=== PATIENT | female | born 1965 | race Caucasian/White ===

== ENCOUNTER → 2017-09-13 | Outpatient (CLI) | payer BC, SELFPAY | PROVIDERS: Visit Provider Family Medicine | DX: R92.8 Other abnormal and inconclusive findings on diagnostic imaging of breast (principal) | CPT/HCPCS: 76641 ==

== ENCOUNTER → 2018-01-18 14:11 | Outpatient (CLI) | payer BC, MEDICARE, SELFPAY ==
--- NOTE | 2018-01-18 14:16 | US_ITS ---
MM Dig mamm DX unilat RT CAD, US breast RT complete ORDERING PHYSICIAN : Kirsten Osorio PATIENT AGE: 52 years GENDER: Female August 2017, mammogram. Bilateral breast ultrasound February 2016 INDICATION: . Palpable area right breast. 4 weeks Fibrocystic breast TECHNIQUE: Standard CC and MLO images were obtained. R2 CAD reviewed. DIAGNOSTIC RIGHT MAMMOGRAM with Spot views Enlarging now 4 cm mass at the 9:00 retroareolar region right breast- reflecting enlarging cyst. Subsequent Ultrasound reported below confirm such.. There is a adjacent nearly 2 cm cyst just above this towards 11:00 evident on mammography. At both of these densities/cyst have enlarged since prior mammogram studies. From 2015 and 2016 Remaining fibroglandular elements elsewhere at the right breast appear stable ULTRASOUND RIGHT BREAST including axillary survey Entire breast was imaged and included axillary lymph node survey .. Large bilobed cystic complex at the lateral retroareolar region. Overall this bilobed cyst measures 5.5 cm length x 3 cm wide x 2.6 cm AP. The dominant portion of the cyst measuring 4 cm length(labeled A) with an adjacent satellite 1.6 cm cyst. (Labeled B). These match the mammogram mass density on today's mammogram This cystic area has enlarged since 2016 ultrasound at which time the cyst measured 3 cm length This appears to be a simple benign cyst and does not require aspiration based on imaging alone... But if so desired by patient or physician aspiration could be performed in the office or under ultrasound guidance if such is desired . There is also a smaller 1.75 cm cyst at 11:00 towards central breast . Benign cyst. Can be followed. This area is labeled C Axillary lymph nodes survey shows scattered benign lymph nodes largest imaged measuring 2.25 cm length cm.. Normal cortex IMPRESSION:======= 1. Enlarging benign-appearing cyst at the right breast account for the palpable area. Large bilobed cyst 9:00 retroareolar region- overall measuring up to 5.5 cm length. (This bilobed cyst Comprised of a 4 cm cyst and connected 1.6 cm cyst) 2. There is also a 1.75 cm benign cyst at 11:00 3. Neither these cyst require aspiration based on imaging, unless desired based on clinical grounds BI-RADS Category: 2 Benign Finding(s) RECOMMENDED FOLLOW-UP: 1YR - 1 YEAR FOLLOW-UP (A letter has been sent to the patient regarding results of the study.)
== END ==
PROVIDERS: Family Provider Family Medicine; PCP Family Medicine; Visit Provider Nurse Practitioner
DX: N63.10 Unspecified lump in the right breast, unspecified quadrant (principal)
CPT/HCPCS: 76641; 77065

== ENCOUNTER → 2018-03-11 10:49 | Outpatient (CLI) | payer BC, MEDICARE, SELFPAY ==
--- NOTE | 2018-03-11 10:51 | US_ITS ---
US breast LT complete INDICATION: Left breast pain and swelling and redness and tenderness to touch, palpable abnormality ORDERING PHYSICIAN: Michael Parkinson MD PATIENT AGE: 52 years COMPARISON: 09/13/2017 TECHNIQUE: Standard left breast ultrasound performed with axial FINDINGS: There is a bilocular cyst at the 12:00 region at 4.5 x 3.2 cm. The wall appears thickened when compared to the previous exam however, no internal debris is evident. Previously this cyst measured 3.8 x 1.8 cm.. This Corresponds to the palpable abnormality. 17 x 15 mm lobular cyst at 2:00 unchanged. The cyst is near the nipple. There are 2 cysts at 2:00 in the mid aspect of the breast measuring 18 and 11 mm. IMPRESSION: Multiple left breast cyst. The palpable area of concern at 12:00 is slightly larger with thickening of the cyst wall suggesting underlying inflammation/infection. Significant findings called to Dr. Mckee on 03/11/2018 1120 AM.
== END ==
PROVIDERS: Family Provider Family Medicine; PCP Family Medicine; Visit Provider Nurse Practitioner Obstetrics & Gynecology
DX: N64.4 Mastodynia (principal)
CPT/HCPCS: 76641

== ENCOUNTER → 2018-03-13 12:07 | Outpatient (REF) | payer BC, MEDICARE, SELFPAY | LOC: LAB 12:07 | PROVIDERS: Visit Provider Surgery | DX: N61.1 Abscess of the breast and nipple (principal) | CPT/HCPCS: 87070; 87075; 87205 ==

== ENCOUNTER → 2018-03-14 14:00 | Outpatient (CLI) | payer BC, MEDICARE, SELFPAY ==
--- NOTE | 2018-03-14 14:02 | US_ITS ---
US breast LT complete Ultrasound-guided cyst aspiration Ordering Physician: Leland Alvarez MD Patient Age: 52 years: Female HISTORY: ITS.REASON: abcess left breast cystvery tender from area associated TECHNIQUE: Aspiration left infected left breast cyst/abscess performed by Dr. Bright COMPARISON :Recent ultrasound 03/11/2018 PROCEDURE AND FINDINGS The initial ultrasound performed and shows a very debris filled echogenic cyst at 11-12:00. This measuring up to 3.2 x 1.8 cm. Disc posterior this is a smaller 1.3 x 1 cm echogenic cyst. Both of these were seen on previous ultrasound 03/11/2018 and both have decreased in size notably in the interval. The larger of these cysts. Understand that these were aspirated by Dr. Alvarez yesterday in the office with aspiration directed by palpation. We proceeded with aspiration of this larger cyst at 11-12:00 O'clock. Using an 18-gauge needle was able to to withdraw additional 6-7 cc bloody fluid from this area and we can see it decreased slightly in size during the procedure.. It measured 2.6 cm cm length at the end of the study. This obtain bloody fluid was sent for cytology, Gram stain, culture and sensitivity.. Also attempted to aspirate the smaller cyst just posterior to this with only a small amount of fluid from this area which was included in the above specimen The patient also had clear cyst at the 2 o'clock position. These were documented previously and appear the same. The remaining clear. I discussed these with Dr. Alvarez and did not want to introduce any infection into these otherwise clear appearing cyst. A focus old be on the very echogenic apparent infected cyst at 11-12 o'clock position The patient was anxious and extremely tender anxious this area because of this we did offer and give her Phenergan by mouth and Lortab 5 prior to the procedure. At this seemed to help and she tolerated the procedure quite well with less discomfort than expected from her initial exam . The patient does have some notable ductal prominence in the retroareolar region . Also diffuse edema tissues surrounding the infected cyst/abscess at 11-12 o'clock position noted IMPRESSION 1. The very echogenic debris-filled infected cyst/abscess at the 11-12 o'clock position were identified and aspirated with an 18-gauge spinal needle 6-7 cc of bloody fluid were obtained from this region and the area did decrease in size slightly after this. Both the large cyst and the smaller cyst just behind were additionally aspirated Patient tolerated procedure surprising well given her initial exam and pain in this region 2. The other clear clear thin-walled cyst at 2:00 were not aspirated. I scanned these areas in the did not seem to have the inflammation in the more adjacent to them and did not want intravenous infection. These will be followed as discussed with Dr. Alvarez IMPRESSION:
== END ==
PROVIDERS: Family Provider Family Medicine; PCP Family Medicine; Visit Provider Surgery
DX: N63.20 Unspecified lump in the left breast, unspecified quadrant (principal)
CPT/HCPCS: 10022; 76641; 87070; 87075; 87205

== ENCOUNTER → 2018-04-08 13:58 | Outpatient (CLI) | payer BC, MEDICARE, SELFPAY ==
--- NOTE | 2018-04-08 14:05 | US_ITS ---
US breast LT complete Ordering Physician: Mango Roach MD Patient Age: 52 years: Female HISTORY: ITS.REASON: breast abscessat 11-12:00. Recent increase tender tense area at now at 2-3:00 TECHNIQUE: Ultrasound survey entire breast including axillary survey COMPARISON :Previous ultrasound left breast March 14, 2018 and 03/11/2018 left breast FINDINGS . We encounter a pair of cyst at 2:00-3 o'clock position left breast. The largest cyst measuring 2 cm X 1.8 cm.-This is similar to the initial 03/11/2018 examll The medial to this is a 1.5 x 1.3 cm cystic area..-This also appears similar size to the initial 03/11/2018 exam There is no significant wall thickening or inflammatory changes evident on ultrasound associated with either of these previously evident cyst. There appear to be fairly simple benign cysts currently on ultrasound. The patient states her symptoms have improved.. She declined pursuing cyst aspiration today. Understand she is still on antibiotics and will follow-up with Dr. Roach on Sunday when she returns after her vacation if symptoms progress Moving to the superior medial quadrant left breast: The site of previous infected cyst/abscess at 11-12:00 has significantly regressed.. Notably Smaller residual septated cystic area now measures overall up to 2 cm wide. Most notable within this is a 1.5 cm hypoechoic debris-filled cystic area with septations & mild diffuse wall thickness about this area- reflecting the resolving abscess. The just medial to this is a less than 5 mm cystic area.. The small secondary cystic area posterior to the main collection is longer evident posteriorly. IMPRESSION: 1. The pair of cysts at 2:00-3 o'clock position left breast appear similar to the initial 03/11/2018 ultrasound breast exam. They remain clear cyst with no significant wall thickening nor significant turbinate inflammation type changes appreciable on ultrasound. No increased vascularity either 2. The patient states her symptoms have improved here over the past several days and declined breast aspiration of these cysts at this visit. 3. There is been significant improvement & regression at the previous infected cyst/abscess at 11-12:00.. We do see continue to see residual septated cystic area here which overall spans up to 2 cm. However marked regression and improvement both ultrasound and clinically. This can be followed 4. Follow-up of these areas as required by symptoms. BI-RADS Category: 2 Benign Finding(s) RECOMMENDED FOLLOW-UP: 1YR - 1 YEAR FOLLOW-UP (A letter has been sent to the patient regarding results of the study.)
== END ==
PROVIDERS: Family Provider Family Medicine; PCP Family Medicine; Visit Provider Surgery
DX: N61.1 Abscess of the breast and nipple (principal)
CPT/HCPCS: 76641

== ENCOUNTER → 2019-03-13 09:57 | Outpatient (CLI) | payer MEDICARE, BC, SELFPAY ==
--- NOTE | 2019-03-13 10:04 | MM_ITS ---
MM Dig screening mamm BI w/CAD CAD Screening COMPARISON: Digital mammograms with CAD 08/29/2017 and digital right mammogram with CAD 01/18/2018 INDICATION: There is a history of breast cancer in patient's mother diagnosed at age 46. There is been previous cyst aspiration left breast with benign findings. TECHNIQUE: Standard CC and MLO images were obtained. R2 CAD reviewed. FINDINGS: Moderate diffuse fibroglandular densities are seen in central portions of both breast. The 2 dominant cystic appearing masses right breast seen on the previous mammogram 01/18/2018 have shown marked interval decrease in size and presumably are cysts which have spontaneously decompressed somewhat. There are few benign-appearing microcalcifications in each breast. There are no suspicious microcalcifications. IMPRESSION: Moderate diffuse breast density with interval decrease in size of apparent cystic lesions right breast BI-RADS Category: 2 Benign Finding(s) RECOMMENDED FOLLOW-UP: 1YR - 1 YEAR FOLLOW-UP (A letter has been sent to the patient regarding results of the study.)
== END ==
PROVIDERS: PCP Family Medicine; Visit Provider Family Medicine
DX: Z12.31 Encounter for screening mammogram for malignant neoplasm of breast (principal)
CPT/HCPCS: 77067

== ENCOUNTER → 2019-05-23 17:15 | Outpatient (CLI) | payer BC, SELFPAY ==
--- NOTE | 2019-05-23 17:44 | XR_ITS ---
PROCEDURE: XR LUMBAR SPINE MIN 4V CLINICAL INDICATION: LOWER BACK PAIN COMPARISON: No exams were available for comparison FINDINGS: There is normal alignment. No fracture or dislocation. There are 6 lumbar segments with mild degenerative disc disease in the lower lumbar spine and lumbosacral junction. Mild facet hypertrophic changes are present at the lumbosacral junction. IMPRESSION: Mild degenerative changes, no acute finding Dictated by: Demarcus Oneal MD 05/24/2019 06:40 Signed by: <Electronically signed by Demarcus Oneal MD in [place]> 05/24/2019 06:40
--- NOTE | 2019-05-23 17:45 | XR_ITS ---
PROCEDURE: XR HIP RT 2-3V W/PELVIS CLINICAL INDICATION: TROCHANTERIC BURSITIS Right hip pain COMPARISON: HIP2L HIP-2 VIEWS-LT from 12/19/2013 ABDPELW/O CT ABD PELVIS W/O CONTRAST from 01/06/2016 FINDINGS: No fracture or dislocation is evident. No significant degenerative change. No lytic or blastic change. Unremarkable soft tissues. IMPRESSION: No acute findings. Dictated by: Demarcus Oneal MD 05/24/2019 06:37 Signed by: <Electronically signed by Demarcus Oneal MD in [place]> 05/24/2019 06:37
== END ==
PROVIDERS: PCP Family Medicine; Visit Provider Family Medicine
DX: M46.1 Sacroiliitis, not elsewhere classified (principal); M54.16 Radiculopathy, lumbar region; M70.61 Trochanteric bursitis, right hip
CPT/HCPCS: 72110; 73502

== ENCOUNTER → 2019-06-10 10:55 | Outpatient (POV) | payer MEDICARE, BC, SELFPAY ==
[2019-06-10 11:17] VITALS: BP 132/92; PULSE 99; RESP 18; O2SAT 99; BMI 30.2
--- NOTE | 2019-06-10 12:04 | HMH.PMCON ---
Assessment and Plan (1) Facet arthropathy Current visit: Yes Status: Chronic Category: Medical Code(s): M47.819 - Spondylosis without myelopathy or radiculopathy, site unspecified (2) Pain Current visit: Yes Status: Chronic Category: Medical Code(s): R52 - Pain, unspecified - Assessment and plan all Dx Assessment and Plan for all problems:: We will schedule lumbar MRI for the patient to help discern pathology. Patient is tried injections in the past and did not have much relief with it. She has had pain for over a year and has failed conservative measures including physical therapy and medications. I will follow-up with her after her MRI and reassess her symptoms at that time she is instructed to call the office if she has any issues prior to her next appointment. Dr. Sepulveda has reviewed this note and agrees with this plan of care. This note was dictated using voice recognition software and may contain errors or omissions HPI - Data of Consult Consult date: 06/10/19 Requesting Physician: Fannie Billy APRN Primary Care Provider: Neil Ramey MD - Consult Narrative Reason for consult: Lower back pain History of present illness: Ms. Garcia is a 53 year old female who presents today for consultation in regards to her low back pain. Patient has had pain for the last 20 years. She rates her pain a 5 out of 10. She does SI joint injections back in 1998 however they do not get any better. Patient states her pain is constant. She is tried multiple medications including Elavil, Soma, Celebrex, Cymbalta, gabapentin, Motrin, naproxen, tramadol, Paxil. Patient has completed physical therapy with no true relief. Patient does have an x-ray showing facet hypertrophy in the lumbosacral junction. Patient does not have any MRI. Pain is worse on twisting patient is extremely tender over SI joints and facet joints lumbar spine CC: Fannie Billy APRN [facility] History I have reviewed the patient's past medical history: Yes Medical History: Reports:: Gastroesophageal Reflux Disease(GERD), Hypertension, Palpitations *Have you ever received a pneumonia vaccine?: Yes *Have you received a flu vaccine this season?: Yes Other Medical History: Reports: Thyroid Disease Laterality Cases: Left: Breast Biopsy Other Surgeries: Yes: No Previous Surgery, Thyroidectomy - *Social History Smoking Status: Never smoker Tobacco Type: cigarettes Alcohol Intake: never Alcohol Intake Frequency:: a few times a month Substance Use Type: denies use *Occupational Status:: employed, other Housing: house Household Members: family *Travel in the last 8 weeks: None Family Hx:: Cancer Review of Systems - Review of Systems ROS General: no recent weight change, no fever, no sleep disturbances Respiratory: no cough, no shortness of air, no recurring pulmonary infections Cardiovascular/Peripheral Vascular: No chest pain, No palpitations, no edema, no shortness of breath. Gastrointestinal: no incontinence, normal bowel movements reported Genitourinary: no incontinence Musculoskeletal: Back pain Psychiatric: normal mood/ affect Neurological: [denies weakness in extremities], [denies balance issues] Meds Home Medications Medication Instructions Recorded Confirmed Type esomeprazole magnesium 40 mg 40 mg PO ONCE 03/12/18 05/03/19 History capsule,delayed release nebivolol 2.5 mg tablet 2.5 mg PO ONCE 03/12/18 05/03/19 History levothyroxine 75 mcg tablet PO 90 Days #90 04/20/18 05/03/19 History amoxicillin 500 mg capsule 500 mg PO BID 10 Days #20 cap 05/03/19 05/03/19 Rx benzonatate 100 mg capsule 100 mg PO TID PRN #30 cap 05/03/19 05/03/19 Rx paroxetine 20 mg tablet PO #90 tab 05/03/19 05/03/19 History Allergies Allergy/AdvReac Type Severity Reaction Status Date / Time acetaminophen Allergy Unknown Verified 05/03/19 10:51 codeine Allergy Unknown Verified 05/03/19 10:51 hydrocodone Allergy Unknown Verified
--- NOTE | 2019-06-10 12:08 | P.CONS_ITS ---
Assessment and Plan (1) Facet arthropathy Current visit: Yes Status: Chronic Category: Medical Code(s): M47.819 - Spondylosis without myelopathy or radiculopathy, site unspecified (2) Pain Current visit: Yes Status: Chronic Category: Medical Code(s): R52 - Pain, unspecified - Assessment and plan all Dx Assessment and Plan for all problems:: We will schedule lumbar MRI for the patient to help discern pathology. Patient is tried injections in the past and did not have much relief with it. She has had pain for over a year and has failed conservative measures including physical therapy and medications. I will follow-up with her after her MRI and reassess her symptoms at that time she is instructed to call the office if she has any issues prior to her next appointment. Dr. Sepulveda has reviewed this note and agrees with this plan of care. This note was dictated using voice recognition software and may contain errors or omissions HPI - Data of Consult Consult date: 06/10/19 Requesting Physician: Fannie Billy APRN Primary Care Provider: Neil Ramey MD - Consult Narrative Reason for consult: Lower back pain History of present illness: Ms. Garcia is a 53 year old female who presents today for consultation in regards to her low back pain. Patient has had pain for the last 20 years. She rates her pain a 5 out of 10. She does SI joint injections back in 1998 however they do not get any better. Patient states her pain is constant. She is tried multiple medications including Elavil, Soma, Celebrex, Cymbalta, gabapentin, Motrin, naproxen, tramadol, Paxil. Patient has completed physical therapy with no true relief. Patient does have an x-ray showing facet hypertrophy in the l umbosacral junction. Patient does not have any MRI. Pain is worse on twisting patient is extremely tender over SI joints and facet joints lumbar spine CC: Fannie Billy APRN [facility] History I have reviewed the patient's past medical history: Yes Medical History: Reports:: Gastroesophageal Reflux Disease(GERD), Hypertension, Palpitations *Have you ever received a pneumonia vaccine?: Yes *Have you received a flu vaccine this season?: Yes Other Medical History: Reports: Thyroid Disease Laterality Cases: Left: Breast Biopsy Other Surgeries: Yes: No Previous Surgery, Thyroidectomy - *Social History Smoking Status: Never smoker Tobacco Type: cigarettes Alcohol Intake: never Alcohol Intake Frequency:: a few times a month Substance Use Type: denies use *Occupational Status:: employed, other Housing: house Household Members: family *Travel in the last 8 weeks: None Family Hx:: Cancer Review of Systems - Review of Systems ROS General: no recent weight change, no fever, no sleep disturbances Respiratory: no cough, no shortness of air, no recurring pulmonary infections Cardiovascular/Peripheral Vascular: No chest pain, No palpitations, no edema, no shortness of breath. Gastrointestinal: no incontinence, normal bowel movements reported Genitourinary: no incontinence Musculoskeletal: Back pain Psychiatric: normal mood/ affect Neurological: [denies weakness in extremities], [denies balance issues] Meds Home Medications Medication Instructions Recorded Confirmed Type esomeprazole magnesium 40 mg 40 mg PO ONCE 18 05/03/19 History capsule,delayed release nebivolol 2.5 mg tablet 2.5 mg PO ONCE 03/12/18 05/03/19 History levothyroxine 75 mcg tablet PO 90 Days #
== END ==
PROVIDERS: PCP Family Medicine; Visit Provider Clinical Nurse Specialist Family Health
DX: M47.819 Spondylosis without myelopathy or radiculopathy, site unspecified (principal); R52 Pain, unspecified
CPT/HCPCS: 99202

== ENCOUNTER → 2019-06-17 08:03 | Outpatient (CLI) | payer MEDICARE, BC, SELFPAY ==
--- NOTE | 2019-06-17 08:05 | MR_ITS ---
PROCEDURE: MR LUMBAR SPINE WO CON CLINICAL INDICATION: BACK PAIN Low back pain radiating into the right lower extremity, right-sided radiculopathy COMPARISON: XR LUMBAR SPINE MIN 4V from 05/23/2019 TECHNIQUE: Standard multiplanar multiecho sequences are performed without contrast. 3-D MIP and myelographic images are also rendered and reviewed FINDINGS: The spinal cord ends at the L1 level. There is normal alignment. Minimal degenerative changes T11-T12 L3-L4: Minimal bulging disc with mild disc desiccation. L4-5: Unremarkable. L5-S1: Unremarkable. No disc herniation or canal stenosis or foraminal narrowing. IMPRESSION: Only minimal degenerative changes with no canal stenosis, foraminal narrowing or extruded herniated disc. Dictated by: Demarcus Oneal MD 06/17/2019 09:51 Electronically signed by Demarcus Oneal MD in [place] 06/17/2019 09:51
== END ==
PROVIDERS: PCP Family Medicine; Visit Provider Clinical Nurse Specialist Family Health
DX: M54.5 Low back pain (principal)
CPT/HCPCS: 72148; 76376

== ENCOUNTER → 2019-07-08 11:10 | Outpatient (POV) | payer MEDICARE, BC, SELFPAY ==
[2019-07-08 11:16] VITALS: BP 159/70; PULSE 95; RESP 18; O2SAT 96; BMI 29.9
--- NOTE | 2019-07-08 11:54 | XR_ITS ---
PROCEDURE: XR HIP RT 2-3V W/PELVIS Left hip two-views views CLINICAL INDICATION: HIP PAIN,SACROILIAC PAIN COMPARISON: HIP2L HIP-2 VIEWS-LT from 12/19/2013 ABDPELW/O CT ABD PELVIS W/O CONTRAST from 01/06/2016 XR LUMBAR SPINE MIN 4V from 05/23/2019 XR HIP RT 2-3V W/PELVIS from 05/23/2019 XR HIP LT 2-3V W/PELVIS from 07/08/2019 FINDINGS: Right hip: No fracture or dislocation is evident. There is a lucency overlying the femoral head superiorly and may actually be within the acetabulum possibly related to an os acetabulum. No other significant anomalies are evident of the right hip. Left hip: Unremarkable. IMPRESSION: Lucency projecting over the femoral head on the right possibly due to a lucency of the acetabulum. Consider CT for confirmation. Otherwise negative. Negative left hip Dictated by: Demarcus Oneal MD 07/08/2019 18:24 Electronically signed by Demarcus Oneal MD in [place] 07/08/2019 18:25
--- NOTE | 2019-07-08 11:54 | XR_ITS ---
PROCEDURE: XR SACROILIAC JOINT BI MIN 3V CLINICAL INDICATION: HIP PAIN,SACROILIAC PAIN COMPARISON: No exams were available for comparison FINDINGS: No fracture, dislocation, lytic change, blastic change, sclerosis, or significant degenerative change IMPRESSION: Negative SI joints Dictated by: Demarcus Oneal MD 07/08/2019 18:27 Electronically signed by Demarcus Oneal MD in [place] 07/08/2019 18:27
--- NOTE | 2019-07-08 15:21 | HMH.PAINSOAP ---
[facility] Pain Management SOAP Note Subjective:: Patient is a pleasant 53-year-old white female presents today for follow-up after MRI. Her MRI was pretty much unremarkable. However again most of her pain is SI joint related. Patient does have a positive Nayla's test Bandar test and SI joint compression test. Patient and I talked about utilizing an SI joint injection as a nerve block to determine if she is potentially a corner lock candidate I do believe this would be beneficial. She is also going to be getting a SI joint belt to help stabilize. She is continuing her home stretching program. Patient has completed physical therapy in the past with no success. She is had this pain for over 15 years. She is failed over 6 months of conservative treatments. ROS General: no recent weight change, no fever, no sleep disturbances Respiratory: no cough, no shortness of air, no recurring pulmonary infections Cardiovascular/Peripheral Vascular: No chest pain, No palpitations, no edema, no shortness of breath. Gastrointestinal: no new onset incontinence, normal bowel movements reported Genitourinary: no new onset incontinence Musculoskeletal: SI joint pain bilaterally Psychiatric: normal mood/ affect Neurological: [denies new onset weakness in extremities], [denies new onset balance issues] Objective:: Physical Exam General: Alert and oriented x3, no acute distress, pleasant and cooperative, [on room air] Lungs: Resps E/U, Symmetrical chest expansion, Eyes: PERRL Musculoskeletal: Flexion and extension of lumbar spine somewhat guarded secondary to pain, deep tendon reflexes normal, strength in upper and lower extremities [5/5], antalgic gait noted Neurological: speech clear, business 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 Patient also can get a SI joint belt for stabilization. Patient and I also discussed the corner lock procedure. I will follow-up with the patient after her injections reassess her symptoms at that time she is been instructed to call the office if she has any issues prior to her next appointment. Dr. Sepulveda has reviewed this note and agrees with this plan of care. This note was dictated using voice recognition software and may contain errors or omissions [facility] History I have reviewed the patient's past medical history: Yes Medical History: Reports:: Gastroesophageal Reflux Disease(GERD), Hypertension, Palpitations *Have you ever received a pneumonia vaccine?: No *Have you received a flu vaccine this season?: No Other Medical History: Reports: Thyroid Disease Laterality Cases: Left: Breast Biopsy Other Surgeries: Yes: No Previous Surgery, Thyroidectomy - *Social History Smoking Status: Never smoker Tobacco Type: cigarettes Alcohol Intake: never Alcohol Intake Frequency:: a few times a month Substance Use Type: denies use *Occupational Status:: employed Housing: house Household Members: family *Travel in the last 8 weeks: None Family Hx:: Cancer
--- NOTE | 2019-07-09 11:39 | PC.PHONENOTE ---
called in Rx for Diclofenac 75mg BID with 1 refill per md order.
== END ==
PROVIDERS: PCP Family Medicine; Visit Provider Clinical Nurse Specialist Family Health
DX: M46.1 Sacroiliitis, not elsewhere classified (principal)
CPT/HCPCS: 72202; 73502; 99212

== ENCOUNTER → 2020-04-06 10:00 | Outpatient (CLI) | payer MEDICARE, BC, SELFPAY ==
--- NOTE | 2020-04-06 10:05 | MM_ITS ---
PROCEDURE: MM DIG SCREENING MAMM BI W/CAD Digital Breast Tomosynthesis Included CLINICAL INDICATION: SCREENING There is no personal or family history of breast cancer. There has been a previous cyst aspiration right breast with benign findings. COMPARISON: [facility] DIG MAMM-SCREEN LEON W/CAD from 08/29/2017 DXRT MM Dig mamm DX unilat RT CAD from 01/18/2018 DIG MAMM-SCREEN LEON from 03/13/2019 TECHNIQUE: Standard CC and MLO images and 3D Tomosynthesis was obtained. R2 CAD reviewed. FINDINGS: Prominent diffuse fibroglandular densities are seen throughout both breasts. There are 2 rounded densities right breast 1 just deep to the nipple other 10 to 11 o'clock position mid breast. The 11 o'clock nodular density is stable and unchanged in appearance from previous studies dating back to August 2017. The other density just deep to the nipple likely is the site of the previously aspirated cyst and probably showing some recurrence. Recommend the patient return for ultrasound of the right breast to ensure the cystic nature of these lesions. There is a benign-appearing calcification left breast. There is no other suspicious lesion and no suspicious microcalcifications. IMPRESSION: Moderate diffuse breast density with rounded nodular lesions right breast BI-RAD Category: 0 Need Additional Imaging Evaluation FOLLOW-UP: IMM Immediate Follow-up Recommended (A letter has been sent to the patient regarding results of the study.) Dictated by: Dr. Monico Marroquin MD 04/08/2020 14:[address] Monico Marroquin MD in [place] 04/08/2020 14:38
== END ==
PROVIDERS: PCP Family Medicine; Visit Provider Family Medicine
DX: Z12.31 Encounter for screening mammogram for malignant neoplasm of breast (principal)
CPT/HCPCS: 77063; 77067

== ENCOUNTER → 2020-04-19 09:49 | Outpatient (CLI) | payer MEDICARE, BC, SELFPAY ==
--- NOTE | 2020-04-19 09:52 | US_ITS ---
PROCEDURE: US BREAST RT COMPLETE CLINICAL INDICATION: ABN MAMM Abnormal mammogram COMPARISON: US BREASTRT US breast RT complete from 01/18/2018 US BREASTLT US breast LT complete from 04/08/2018 MG MM DIG SCREENING MAMM BI W/CAD from 04/06/2020 FINDINGS: At 7 o'clock there is a complicated cystic lesion measuring 9 x 7 mm with an internal septation. There is an additional hypoechoic nodule at 7 o'clock measuring 18 x 11 mm. This does contain some low level echoes with some enhanced through transmission is sound and is wider than tall and could represent a complex cyst with debris or a solid nodule. And 11 mm cyst is present at 10 o'clock with some internal debris. IMPRESSION: Complicated cyst along with a indeterminate hypoechoic possible solid nodule at 7 o'clock. BI-RADS category 4 mildly suspicious 11 mm hypoechoic nodule at 7 o'clock Recommend ultrasound-guided FNA/core biopsy Dictated b Demarcus Oneal MD 04/29/2020 17:57 Demarcus Oneal MD in [place] 04/29/2020 17:57
== END ==
PROVIDERS: PCP Family Medicine; Visit Provider Family Medicine
DX: R92.8 Other abnormal and inconclusive findings on diagnostic imaging of breast (principal)
CPT/HCPCS: 76641

== ENCOUNTER → 2020-05-26 12:30 | Outpatient (CLI) | payer MEDICARE, BC, SELFPAY ==
--- NOTE | 2020-05-26 12:40 | US_ITS ---
PROCEDURE: US FNA BREAST CLINICAL INDICATION: RT BREAST CYST Two nodules of the right breast at 7 o'clock and at 10 o'clock. COMPARISON: MG MM DIG SCREENING MAMM BI W/CAD from 04/06/2020 US US BREAST RT COMPLETE from 04/19/2020 TECHNIQUE: Following obtaining informed consent and pre biopsy ultrasound performed FNA which was performed the nodule which was previously labeled at 7 o'clock but is actually at 9 o'clock. These are labeled as 9 o'clock and the biopsy was labeled as 9 o'clock including FNA and core biopsy which also performed at this area. Pathology report is labeled as breast biopsy needle cores right 11 o'clock. This is actually the 9 o'clock biopsy as a core biopsy was not performed at 11 o'clock. Proliferative fibrocystic changes. Microcalcifications are identified. FNA 1. 9 o'clock atypical. Rare atypical ductal groups with histiocytes suggestive of a cystic component favoring reactive hyperplasia. FNA 2 also performed at 9 o'clock negative for malignant cells FNA was also performed at 11 o'clock with a complicated cyst which was nearly completely aspirated and was negative for malignant cells. FINDINGS: Pathology report is labeled as breast biopsy needle cores right 11 o'clock. This is actually the 9 o'clock biopsy as a core biopsy was not performed at 11 o'clock. Proliferative fibrocystic changes. Microcalcifications are identified. FNA 1. 9 o'clock atypical. Rare atypical ductal groups with histiocytes suggestive of a cystic component favoring reactive hyperplasia. FNA 2 also performed at 9 o'clock negative for malignant cells FNA was also performed at 11 o'clock with a complicated cyst which was nearly completely aspirated and was negative for malignant cells. IMPRESSION: Status post FNA and core biopsy at 9 o'clock. The FNA did show some atypical cells on 1 sample but not on the 2nd sample. The core biopsy was proliferative fibrocystic change without atypia or malignancy. FNA at 11 o'clock was negative for malignancy. Recommend six-month sonographic follow-up per routine protocol Dictated by: Demarcus Oneal MD 06/16/2020 13:32 Demarcus Oneal MD in [place] 06/16/2020 13:32
== END ==
PROVIDERS: PCP Family Medicine; Visit Provider Family Medicine
DX: N60.01 Solitary cyst of right breast (principal)
CPT/HCPCS: 19083; 76942; 87070; 87205; 88173; 88305

== ENCOUNTER → 2020-07-06 16:56 | Outpatient (CLI) | payer MEDICARE, BC, SELFPAY ==
[2020-07-06 17:10] LABS: Basophils % 0.5 % (0.1-2.0); Eosinophils # 0.2 K/mm3 (0.0-0.4); Eosinophils % 4.9 % (0.1-12.0); Hematocrit 42.6 % (37.0-47.0); Hemoglobin 13.3 g/dL (12.2-16.2); Lymphocytes # 1.7 K/mm3 (0.7-4.5); Lymphocytes % 38.4 % (10-50); Mean Corpuscular HGB Conc 31.3 g/dL (31.8-35.4); Mean Corpuscular Hemoglobin 30.6 pg (27.0-31.2); Mean Corpuscular Volume 97.6 fl (81-99); Mean Platelet Volume 7.6 fl (7.4-10.4); Monocytes # 0.3 K/mm3 (0.1-1.0); Monocytes % 7.4 % (1.7-9.3); Neutrophils # 2.2 K/mm3 (1.8-7.8); Neutrophils % 48.7 % (37.0-80.0); Platelet Count 266 K/mm3 (142-424); Red Blood Count 4.36 M/mm3 (4.20-5.40); Red Cell Distribution Width 11.8 % (11.5-17.5); White Blood Count 4.4 K/mm3 (4.8-10.8)
[2020-07-06 18:26] LABS: Chloride 103 mmol/L (98-107); Potassium 3.9 mmoL/L (3.5-5.1); Sodium 137 mmol/L (136-145)
[2020-07-06 18:29] LABS: Anion Gap 8.9 mEq/L (5-15); Blood Urea Nitrogen 12 mg/dl (7-17); Carbon Dioxide 29 mmol/L (22.0-30.0); Estimated Glomerular Filt Rate 103 ml/min (>60); GFR (African American) 125 ML/MIN (>60); Glucose 98 mg/dl (74-100)
[2020-07-06 20:55] LABS: Coronavirus 19 IgG Antibody Negative (Negative); Coronavirus 19 IgM Antibody Negative (Negative)
== END ==
PROVIDERS: Visit Provider Surgery
DX: M47.819 Spondylosis without myelopathy or radiculopathy, site unspecified (principal); R89.7 Abnormal histological findings in specimens from other organs, systems and tissues; Z01.89 Encounter for other specified special examinations
CPT/HCPCS: 36415; 80048; 85025; 86328

== ENCOUNTER 2020-07-09 07:34 | Day surgery (SDC) | payer MEDICARE, BC, SELFPAY ==
[2020-07-09] VITALS (12 sets, daily range): BP systolic 125–152; BP diastolic 68–97; PULSE 64–85; RESP 12–18; TEMP 36.2–36.5; O2SAT 96–100; BMI 27.1
--- NOTE | 2020-07-09 08:34 | US_ITS ---
PROCEDURE: US BREAST NEEDLE LOC RT CLINICAL INDICATION: abnormal breast biopsy COMPARISON: MG MM DIG SCREENING MAMM BI W/CAD from 04/06/2020 US US FNA BREAST from 05/26/2020 MG MM SURGICAL SPECIMEN RT from 07/09/2020 MG MM DIG MAMM DX UNILAT RT CAD from 07/09/2020 FINDINGS: Following obtaining informed consent are under aseptic conditions and local anesthesia with buffered 1 percent lidocaine and time-out procedure, a 7 cm Kopan's wire was placed along the lower aspect of the nodule and an additional 7 cm wire was placed along the superior aspect of the nodule. The patient tolerated the procedure well and left radiology suite in stable condition without evidence of immediate complication. Right mammogram post hookwire placement 2 wires are present in the lateral aspect of the right breast near 9 o'clock. The wires are in position. No definite mammographic abnormality was determined to be present at this region. Impression: Status post hookwire localization with ultrasound Tissue specimen: Small surgical specimen submitted in consent it originally shows the [address] No obvious nodular area evident in this region. More tissue was then obtained showing some fibroglandular elements present. No discrete mass was apparent. IMPRESSION: Uneventful ultrasound-guided hookwire localization. Dictated by: Demarcus Oneal MD 07/13/2020 15:26 Demarcus Oneal MD in [place] 07/13/2020 15:26
--- NOTE | 2020-07-09 12:37 | HMH.OPNOTE ---
Date of procedure: 07/09/20 Pre-op Diagnosis:: Abnormal right breast biopsy Post-op Diagnosis:: Same Procedure performed:: Needle-localized excisional biopsy of right breast lesion Surgeon:: Leland Alvarez MD ASSET AVAILABILITY LEADER:: Keshav Mcwilliams Anesthesia: LMA Estimated blood loss (mL): 25 Operative findings:: Localization needles running lateral to medial and remained in the very shallow subcutaneous tissue Initial excision did not obtain complete excision of tissue Reexcision of deeper tissue with radiographic confirmation of appropriate excision Operative note:: After informed consent was obtained the patient was taken to the radiology suite where a localization needles were placed. Please see separate radiology report for detail. She was then taken to the operating room and placed in the supine position. General anesthesia with laryngeal mask airway was achieved. Her right breast was prepped and draped in a sterile fashion. After infiltration local anesthetic a curvilinear incision at the exit site of the adjacent localization needles was completed with scalpel. The deep subcutaneous tissue was dissected with a combination of scalpel and Metzenbaum scissors. The localization needles were carefully elevated as dissection continued. The placement of the needles was very shallow . The needles with underlying tissue were excised sharply with curved Fay scissors and passed off for pathologic evaluation after being marked for margin. The superficial and deep margins were marked with non-dyed suture (short superficial/long deep) and the superior and lateral margins were marked with dyed suture (long lateral/short superior). The tissue was taken to the radiology department where confirmation of appropriate excision could not be made. The decision was made to take deeper tissue . The deeper and somewhat medial tissue was carefully elevated with Allis clamps. Curved Mayos were then utilized to excise around this tissue and it was passed off for radiographic and pathologic evaluation. Once again, the margins were marked as above. Radiographic evaluation did confirm appropriate excision. Electrocautery was utilized to achieve hemostasis. Hemostasis was very difficult to achieve and also required interrupted non-dyed Vicryl to be placed in the superior lateral margin, medial inferior margin, and medial margin. A small area of ductal drainage was also noted in the subareolar/medial region. This area was carefully evacuated of fluid and suture ligation was completed. No additional areas of injury or bleeding were noted. The wound base and margin were marked with metallic clips. The deep subcutaneous tissue was reapproximated with interrupted Vicryl and skin was then closed with 4-0 Monocryl in a running subcuticular manner. Steri-Strips were applied. Patient was transferred to recovery in stable condition after removal of her laryngeal mask airway. Condition: stable Disposition: PACU Specimens:: Needle localized excisional right breast biopsy Extended deep margin Complications:: No immediate
--- NOTE | 2020-07-09 12:47 | P.PN_ITS ---
[facility] Anesthesia Record Part I Intake, IV Amount: 2,500 Estimated blood loss (mL): 200 Urine output (mL): 0 Blood Pressure: 138/68 SaO2: 96 Pulse Rate: 85 Respiratory Rate: 12 Temperature: 97.5 F Patient is:: Awake, Stable Stable to PACU at:: 12:45
--- NOTE | 2020-07-09 16:28 | P.PN_ITS ---
[facility] Anesthesia Record Part II Discharge Time: 13:30 Destination: Surgical Day Care (OP Surgery) PACU nurse assessment reviewed?: Yes Patient Condition:: Good Anesthesia Complications:: None Swallowing reflex intact?: Yes Cyanosis?: No Blood Pressure: 128/75 Pulse Rate: 64 Temperature: 97.2 F Mental Status: Alert & Oriented Pain level:: 2 Nausea and/or vomitting:: None Intake, IV Amount: 0
== END 2020-07-09 14:05 | disposition home or self-care (01) ==
LOC: OR 07:35
PROVIDERS: PCP Family Medicine; Visit Provider Surgery
DX: R89.7 Abnormal histological findings in specimens from other organs, systems and tissues (principal); R92.8 Other abnormal and inconclusive findings on diagnostic imaging of breast; N63.10 Unspecified lump in the right breast, unspecified quadrant
CPT/HCPCS: 19101; 19285; 76098; 77061; 77065; 88305; 96374; G0279; J2405

== ENCOUNTER → 2020-12-28 09:37 | Outpatient (CLI) | payer MEDICARE, BC, SELFPAY ==
[2020-12-28 10:52] LABS: Basophils % 0.6 % (0.1-2.0); Eosinophils # 0.2 K/mm3 (0.0-0.4); Eosinophils % 4.8 % (0.1-12.0); Hematocrit 41.8 % (37.0-47.0); Hemoglobin 13.3 g/dL (12.2-16.2); Lymphocytes # 1.6 K/mm3 (0.7-4.5); Lymphocytes % 32.4 % (10-50); Mean Corpuscular HGB Conc 31.9 g/dL (31.8-35.4); Mean Corpuscular Hemoglobin 30.3 pg (27.0-31.2); Mean Corpuscular Volume 94.9 fl (81-99); Mean Platelet Volume 7.4 fl (7.4-10.4); Monocytes # 0.3 K/mm3 (0.1-1.0); Monocytes % 7.1 % (1.7-9.3); Neutrophils # 2.6 K/mm3 (1.8-7.8); Neutrophils % 55.1 % (37.0-80.0); Platelet Count 273 K/mm3 (142-424); White Blood Count 4.8 K/mm3 (4.8-10.8)
[2020-12-28 11:22] LABS: Alanine Aminotransferase 31 U/L (12-78); Albumin Level 4.2 g/dl (3.5-5.0); Alkaline Phosphatase 71 U/L (38-126); Anion Gap 9.4 mEq/L (5-15); Aspartate Amino Transferase 33 U/L (14-36); Bilirubin,Indirect 0.6 mg/dL (0.0-0.9); Bilirubin,Total 0.6 mg/dl (0.2-1.3); Bilirubin,Unconjugated 0.6 mg/dL (0.0-1.1); Blood Urea Nitrogen 13 mg/dl (7-17); Calcium 9.4 mg/dl (8.4-10.2); Carbon Dioxide 27 mmol/L (22.0-30.0); Chloride 107 mmol/L (98-107); Chol/HDL Ratio 3.5 (1-3.5); Cholesterol 252 mg/dl (140-200); Estimated Glomerular Filt Rate 103 ml/min (>60); GFR (African American) 125 ML/MIN (>60); Glucose 107 mg/dl (74-100); HDL Cholesterol 72 mg/dl (40-60); Potassium 4.4 mmoL/L (3.5-5.1); Sodium 139 mmol/L (136-145); Total Protein,Serum 6.8 g/dl (6.3-8.2); Triglycerides 112 mg/dl (30-150); VLDL Cholesterol 22 mg/dL (0-40)
[2020-12-28 11:33] LABS: Direct LDL Cholesterol 147.44 mg/dL (100-129)
[2020-12-28 11:39] LABS: Free T4 (Free Thyroxine) 1.88 ng/dl (0.78-2.19)
[2020-12-28 11:53] LABS: Thyroid Stimulating Hormone 0.82 uIU/mL (0.465-4.68)
== END ==
PROVIDERS: PCP Family Medicine; Visit Provider Urology
DX: G47.9 Sleep disorder, unspecified (principal); I10 Essential (primary) hypertension; I73.9 Peripheral vascular disease, unspecified; I83.93 Asymptomatic varicose veins of bilateral lower extremities; K21.9 Gastro-esophageal reflux disease without esophagitis; R00.2 Palpitations; R06.00 Dyspnea, unspecified; R06.83 Snoring; R07.9 Chest pain, unspecified; R40.0 Somnolence; R42 Dizziness and giddiness; R53.83 Other fatigue; R55 Syncope and collapse; R68.89 Other general symptoms and signs; R94.31 Abnormal electrocardiogram [ECG] [EKG]
CPT/HCPCS: 36415; 80048; 80061; 80076; 84439; 84443; 85025; 93270

== ENCOUNTER → 2021-01-05 07:26 | Outpatient (CLI) | payer MEDICARE, BC, SELFPAY ==
--- NOTE | 2021-01-05 | CA_ITS ---
APPROVED REPORT Exam: Pharmacologic Technologist: Kaylan Cohen Ht: 5 ft 5 in Wt: 176 lbs BSA: 1.87 m2 HR: 69 bpm BP: 131/81 mmHg Indications: Shortness of Air, chest pain, Dizzy, Claudication Medical History Medications: Nexium,,,,, Estradiol,,,,, Tramadol,,,,, Bystolic,,,,, Venlafaxine,,,,, ProGESTERONE,,,,, Levothyoxine,,,,, Stress Test Details Test: LEXISCAN Reversal agent Aminophyline 100.0 mg, given intravenously for nausea. HR Resting HR: 81 bpm Max Heart Rate (APMHR): 163.805354 bpm Max HR Achieved: 122 bpm Target HR (85% APMHR): 138.054156 bpm % of APMHR: 74.85 Recovery HR: 84 bpm BP Resting BP: 131.0/81.0 mmHg Max BP: 151.0/79.0 mmHg Recovery BP: 136.0/87.0 mmHg ECG Resting ECG: Normal sinus rhythm, slow R wave progression Clinical Exercise duration: 04:00 min Highest Stage Achieved: Exercise capacity: 1.0 METs Stress ECG Conclusion Symptoms: Shortness of air, nausea, malaise, tingly all over. No chest pain. Arrhythmias/Ectopy: None ST-T Changes: NS T wave flattening. Conclusion: Unremarkable Lexiscan stress. Myoview images reported separately. Electronically signed by : Johnie Rodríguez, 01/06/2021 10:19:21
--- NOTE | 2021-01-05 07:26 | NM_ITS ---
APPROVED REPORT Exam: Nuclear Stress Test Indication: HTN, TOB USE, FM HX, C.P., SOB, FATIGUE, ABN EKG Patient Location: Outpatient Stress Tech: Kaylan Cohen NE Tech:Sneha Erazo AMIRAH RT(R)(N) Ht: 5 ft 5 in Wt: 170 lbs Bra Size: 40 D HR: 69 bpm BP: 131/81 mmHg BSA: 1.85 m2 BMI: 28.2 History: HTN, TOB USE, FM HX, C.P., SOB, FATIGUE, ABN EKG Procedure: Patient received a 0.4 mg of intravenous Lexiscan, resting heart rate 69 bpm, resting blood pressure 131/81 mmHg, with Lexiscan maximum heart rate achived was 119 bpm which is Less than 85 % of the maximum predicted heart rate and blood pressure was 138/85 mmHg. With Lexiscan, patient denied any complaint of chest pain. Electrocardiogram Resting electrocardiogram showed sinus rhythm, with Lexiscan there is less than 1.[address] segment depression noted from the baseline EKG. The EKG portion of the Lexiscan is nondiagnostic. Cardiac Stress and Resting SPECT Images: Cardiac Stress and Resting SPECT images were obtained using technetium 99m Myoview 31.3 mCi stress and 10.30 mCi at rest. Gated SPECT for analysis of segmental wall motion and calculation of the ejection fraction also done. Prone images were also obtained. Cardiac stress and resting SPECT images show uniform myocardial activity without segmental perfusion abnormality, computer derived ejection fraction is 61% with no regional wall motion abnormality, right ventricle is normal size and contractility. Conclusion: 1. The EKG portion of the Lexiscan is nondiagnostic. 2. No scintigraphic evidence of reversible ischemia seen, computer derived ejection fraction is 61% with no regional wall motion abnormality, right ventricle is normal size and contractility. 3. Normal Lexiscan Myoview study. Electronically signed by : Johnie Rodríguez, 01/06/2021 13:12:40
--- NOTE | 2021-01-05 07:27 | CA_ITS ---
APPROVED REPORT Floor Renovator: FROYLAN Laterality: Bilateral Study Quality: Adequate Indications: dizziness Doppler Spectral Velocity Analysis ECA (R) 86.10/19.20 cm/s ECA (L) 81.30/17.10 cm/s dICA (R) 98.80/44.90 cm/s dICA (L) 107.20/47.50 cm/s Clover (R) 73.80/35.30 cm/s Clover (L) 76.50/32.60 cm/s pICA (R) 54.00/16.00 cm/s pICA (L) 56.10/23.50 cm/s dCCA (R) 65.80/23.50 cm/s dCCA (L) 72.20/19.20 cm/s pCCA (R) 79.70/22.50 cm/s pCCA (L) 77.00/18.20 cm/s Vert (R) 18.90/5.40 cm/s Vert (L) 66.10/21.20 cm/s ICA/CCA 1.24 ICA/CCA 1.38 Findings Duplex evaluation demonstrates stenosis of the right proximal internal carotid artery in the range of 20-49% with PSV <140 cm/sec, EDV <100 cm/sec, and IC/CC Ratio <4.0. Duplex evaluation demonstrates stenosis of the left proximal internal carotid artery in the range of 20-49% with PSV <140 cm/sec, EDV <100 cm/sec, and IC/CC Ratio <4.0. Duplex evaluation demonstrates antegradeantegrade flow of the bilateral Vertebral Arteries. Spectral broadening present. Conclusion Duplex evaluation demonstrates stenosis of the right proximal internal carotid artery in the range of 20-49% with PSV <140 cm/sec, EDV <100 cm/sec, and IC/CC Ratio <4.0. Duplex evaluation demonstrates stenosis of the left proximal internal carotid artery in the range of 20-49% with PSV <140 cm/sec, EDV <100 cm/sec, and IC/CC Ratio <4.0. Duplex evaluation demonstrates antegradeantegrade flow of the bilateral Vertebral Arteries. Spectral broadening present. Electronically signed by : Demarcus Oneal MD 01/05/2021 17:40:18
--- NOTE | 2021-01-05 07:27 | CA_ITS ---
APPROVED REPORT EXAM: Comprehensive 2D, Doppler, and color-flow Echocardiogram Bobbin Marker: Clarita Patterson RVT Ht: 5 ft 5 in Wt: 176lbs BSA: 1.87 BP: 132/92 mmHg Indications: SOA,CP,NEAR SYNCOPE,ABN EKG,GERD,DIZZINESS,SMOKER,PALPS,FATIGUE,HTN 2D Dimensions LVOT 2.36 cm (M/F) 1.5-2.5 LA Volume 20.30 mL LA Volume Index 10.85 mL/m2 (M/F) 16-34 M-Mode Dimensions RVDd 2.88 cm (0.9-2.6) LA Diam 2.91 cm (1.9-4.0) LVDd 4.29 cm (3.5-5.7) Ao Diam 2.94 cm (2.0-3.7) LVDs 2.75 cm (3.5-5.7) IVSd 1.31 cm (0.6-1.1) PWd 0.74 cm (0.6-1.1) EF (Teich) 65.70% FS 35.90% EDV (Teich) 82.60 mL TAPSE 1.98 (<1.7) ESV (Teich) 28.30 mL LV Diastology E Decel Time 177.00 (160-240 msec) E/A Ratio 0.7 MED E' 7.80 (< 7 cm/sec) E'/MED E' Ratio 7.36 (>14) LAT E' 7.90 (<10 cm/sec) E/LAT E' Ratio 7.27 (>14) Mitral Valve MV E Max Yaakov. 57.00 (40-130 cm/s) MV A Velocity 78.00 (40-130 cm/s) E/A Ratio 0.73 MV Decel. Time 177.00 (160-240 ms) MV PHT 52.00 ms Pulmonary Valve PV Peak Velocity 70.00 (50-150 cm/s) Tricuspid Valve TR P. Velocity 226.00 cm/s RAP Estimate 10.00 mmHg RVSP 30.40 mmHg Left Ventricle Left atrium is mildly enlarged, left ventricle is normal size, mild concentric left ventricular hypertrophy, visually estimated ejection fraction 55% with no regional wall motion abnormality, grade 1 diastolic dysfunction seen without tissue Doppler evidence of raise left atrial pressure. Right Ventricle Right atrium and right ventricle qualitatively mildly enlarged with normal contractility. Aortic Valve Aortic valve is minimally thickened and fibrosed, there is no aortic stenosis or aortic insufficiency. Mitral Valve Mitral valve grossly normal, there is trace mitral regurgitation. Tricuspid Valve Tricuspid valve grossly normal, there is trace tricuspid regurgitation, tricuspid regurgitation jet velocity is inadequate for calculation of the right ventricular systolic pressure. Pulmonic Valve Pulmonic valve is poorly visualized. Great Vessels Aortic root is normal size. Inferior vena cava is normal size with normal inspiratory collapse. Pericardium No significant pericardial effusion noted Conclusion 1. Mild biatrial enlargement, normal left ventricular size, mild concentric left ventricular hypertrophy, visually estimated ejection fraction 55% with no regional wall motion abnormality, grade 1 diastolic dysfunction seen without tissue Doppler evidence of raise left atrial pressure. 2. Mildly enlarged right ventricle with normal contractility 3. Trace mitral and tricuspid regurgitation. 4. No significant pericardial effusion noted, inferior vena cava is normal size with normal inspiratory collapse. Electronically signed by : Johnie Rodríguez, 01/06/2021 10:23:15
--- NOTE | 2021-01-05 08:22 | US_ITS ---
APPROVED REPORT Exam Type: Ankle to Brachial Index Credit Control Manager: Cecilia Dickson CRT Indications Rest Pain: Bilaterally Numbness/Tingling Hx-lower Back injury Pressures/Indices Right Indices Left Indices Brachial 129.00 mmHg Brachial 124.00 mmHg Low Thigh 125.00 mmHg 0.97 Low Thigh 126.00 mmHg 0.98 Calf 132.00 mmHg 1.02 Calf 129.00 mmHg 1.00 Ankle(PT) 141.00 mmHg 1.09 Ankle(PT) 136.00 mmHg 1.05 Ankle(DP) 140.00 mmHg 1.09 Ankle(DP) 122.00 mmHg 0.95 Digit 123.00 mmHg 0.95 Digit 103.00 mmHg 0.80 Findings RT CURTIS=1.09 LT CURTIS=1.05 RT TPI=0.95 LT TPI=0.80 Conclusion RT CURTIS=1.09 LT CURTIS=1.05 RT TPI=0.95 LT TPI=0.80 No evidence significant arterial disease throughout the right and left lower extremities as evidenced by normal resting PVR waveforms and normal resting indices. Electronically signed by : Demarcus Oneal MD 01/05/2021 17:41:29
== END ==
PROVIDERS: PCP Family Medicine; Visit Provider Urology
DX: I10 Essential (primary) hypertension (principal); I73.9 Peripheral vascular disease, unspecified; I83.93 Asymptomatic varicose veins of bilateral lower extremities; K21.9 Gastro-esophageal reflux disease without esophagitis; R00.2 Palpitations; R06.00 Dyspnea, unspecified; R07.9 Chest pain, unspecified; R53.83 Other fatigue; R55 Syncope and collapse; R68.89 Other general symptoms and signs; R94.31 Abnormal electrocardiogram [ECG] [EKG]; R42 Dizziness and giddiness; G47.9 Sleep disorder, unspecified; R06.83 Snoring; R40.0 Somnolence
CPT/HCPCS: 78452; 93017; 93306; 93880; 93923; A9502; J0280; J2785

== ENCOUNTER → 2021-05-07 10:08 | Outpatient (CLI) | payer MEDICARE, BC, SELFPAY | PROVIDERS: Visit Provider Internal Medicine Gastroenterology | DX: Z01.812 Encounter for preprocedural laboratory examination (principal); Z11.52 Encounter for screening for COVID-19; Z13.810 Encounter for screening for upper gastrointestinal disorder | CPT/HCPCS: U0003 ==

== ENCOUNTER 2021-05-09 13:25 | Day surgery (SDC) | payer MEDICARE, BC, SELFPAY ==
[2021-05-05 11:24] VITALS: BMI 28.3
[2021-05-09 13:53] VITALS: BP 130/64; PULSE 79; RESP 18; TEMP 37; O2SAT 95
--- NOTE | 2021-05-09 14:26 | P.PN_ITS ---
[facility] Anesthesia Checklist - Patient Identification Patient Identification: Arm Band - Structural Data Admitted From: Home Planned Operative Procedure/s: egd Consent for Planned Operative Procedure(s) Verified: Yes Verified Documents: Surgical Consent, History and Physical - NPO Status Verified Time NPO: 00:00 - Additional verifications Anesthesia Reactions: No (nausea) Hx Blood Transfusions: Yes Blood Transfusion Reaction: No - Airway Assessment C-Spine Mobility Assessed: Yes (mp2) TMJ Mobility Assessed: Yes Dentition: Good Dentition - Neurological Assessment Level of Consciousness: Awake, Alert - Anesthesia Plan Anesthesia Risk discussed: Yes Anesthesia Plan: Verified ASA Class: II Anesthesia Type: MAC [facility] History I have reviewed the patient's past medical history: Yes Medical History: Reports:: Gastroesophageal Reflux Disease(GERD), Hypertension, Palpitations Denies:: Cancer, Diabetes Mellitus Type 1, Diabetes Mellitus Type 2, Internal Pacemaker, MRSA, Seizures *Have you ever received a pneumonia vaccine?: Yes *Have you received a flu vaccine this season?: Yes Other Medical History: Reports: Thyroid Disease. Denies: Blood Transfusion Reaction Anesthesia experience/problems:: nac Laterality Cases: Bilateral: Breast Biopsy Other Surgeries: Yes: Cardiac Catheterization, Colonoscopy, Thyroidectomy, Other. 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
--- NOTE | 2021-05-09 14:49 | P.PCN_ITS ---
[facility] Procedure Note Procedure Note:: Upper Endoscopy Procedure Report: Esophagogastroduodenoscopy with cold biopsies and TTS balloon dilation Endoscopost: Karl Bergeron II, MD Referring Physician: Neil Ramey MD Date of Procedure: May 09, 2021 Equipment: Olympus GIF 190 standard upper endoscope Sedation: MAC sedation Indications: Mrs. Garcia is a 55-year-old female with esophageal chest pain. The patient reports midsternal chest pain that radiates between her shoulder blades. This occurs after swallowing intermittently. She does have some dysphagia and globus sensation. She states that the painful swallowing occurs with solids including breads. She does have belching and moderate bloating. She does get some hiccups. She reports epigastric abdominal discomfort, early satiety and occasional nausea. She also has IBS with alternating diarrhea with constipation. The diarrhea is predominant. She has been on Esomeprazole 40 mg by mouth daily for 3 to 4 years which helps with her reflux. She did have an EGD 5 to 6 years ago (Dr. Mango Roach) at which time she was found to have gastric ulcers. Procedure: Prior to the procedure, a history and physical exam was performed, and patient's medications and allergies were reviewed. The risks, benefits and alternatives of the sedation and procedure were discussed with the patient. All questions were answered and informed consent was obtained. The patient was brought to the procedure room. Patient identification and proposed procedure were verified by the physician and the nurse. The patient was placed in a left lateral decubitus position and the scope was passed under direct vision. Throughout the procedure, the patient's blood pressure, pulse, and oxygen saturations were monitored continuously. The upper GI endoscopy was accomplished without difficulty. The patient tolerated the procedure well. Findings: The scope was passed directly into the upper esophagus and advanced to the third portion of the duodenum. The post bulbar duodenum and duodenal bulb were normal with normal mucosa and conniventes. Cold biopsies were taken from the bulb/first portion of the duodenum to rule out celiac disease. The scope was withdrawn through a normal duodenal bulb and pylorus into the stomach. There was bile reflux with mild linear reactive gastropathy of the antrum. The remainder of the body and fundus of the stomach were grossly normal. Upon retroflexion there was a very small sliding 1 to 2 cm hiatal hernia. 2 biopsies were taken in the antrum and along the lesser curvature for histology to rule out gastritis and/or H pylori. The scope was then withdrawn into the esophagus. There was a serrated Z-line suggestive of nonerosive GERD. There was no evidence of reflux esophagitis, Young's or Schatzki's ring. There were strong tertiary contractions and evidence of moderate esophageal dysmotility. The entire esophagus was dilated to 60 [place]/20 mm with a TTS hydrostatic balloon. There was some resistance at the cricopharyngeus. The remainder of the esophageal mucosa was normal. Impression: 1. Cricopharyngeal spasm status post dilation to 20 mm 2. Nonerosive GERD with moderate esophageal dysmotility and very small sliding 1 to 2 cm hiatal hernia 3. Bile reflux with mild linear reactive gastropathy Plan: I will follow-up the biopsies. The patient does have esophageal dyskinesia/esophageal spasm. Most of her symptoms of functional dyspepsia and GERD are related to increased gas pressure gradients from colonic fermen tation/gas formation. We will discuss dietary measures and treatment options.
[2021-05-09 14:52] VITALS: BP 136/82; PULSE 82; RESP 16; TEMP 36.6; O2SAT 100
[2021-05-09 15:02] VITALS: BP 114/81; PULSE 76; RESP 16; O2SAT 98
[2021-05-09 15:12] VITALS: BP 123/74; PULSE 69; RESP 16; O2SAT 96
[2021-05-09 15:22] VITALS: BP 126/66; PULSE 69; RESP 16; TEMP 36.6; O2SAT 97
== END 2021-05-09 15:23 | disposition home or self-care (01) ==
LOC: OUTP 13:33
PROVIDERS: PCP Family Medicine; Visit Provider Internal Medicine Gastroenterology
PROC: 0DJ08ZZ Inspection of Upper Intestinal Tract, Via Natural or Artificial Opening Endoscopic (ICD-10-PCS; CPT 43235; principal; 2021-05-09 14:30)
DX: J39.2 Other diseases of pharynx (principal); K22.4 Dyskinesia of esophagus; K44.9 Diaphragmatic hernia without obstruction or gangrene; K31.9 Disease of stomach and duodenum, unspecified; K58.2 Mixed irritable bowel syndrome; I10 Essential (primary) hypertension; R00.2 Palpitations; E07.9 Disorder of thyroid, unspecified; Z72.0 Tobacco use; Z88.6 Allergy status to analgesic agent; Z88.5 Allergy status to narcotic agent; Z79.899 Other long term (current) drug therapy
CPT/HCPCS: 43239; 43249; 88305; C1726

== ENCOUNTER → 2021-05-20 15:49 | Outpatient (CLI) | payer MEDICARE, BC, SELFPAY | PROVIDERS: PCP Family Medicine; Visit Provider Nurse Practitioner Family | DX: Z20.822 Contact with and (suspected) exposure to COVID-19 (principal) | CPT/HCPCS: U0003 ==

== ENCOUNTER → 2021-07-11 09:57 | Outpatient (CLI) | payer MEDICARE, BC, SELFPAY ==
--- NOTE | 2021-07-11 09:57 | MM_ITS ---
PROCEDURE INFORMATION: Exam: US Left Breast, Complete US Right Breast, Complete MG Bilateral Screening 3D Mammography Exam date and time: 07/11/2021 9:57 AM Age: 55 years old Clinical indication: Right; Lumpectomy at 9:00 region of breast TECHNIQUE: Imaging protocol: Complete ultrasound of all four quadrants of the Left breast and the retroareolar regions, including ultrasound of the axilla when performed. Complete ultrasound of all four quadrants of the Right breast and the retroareolar regions, including ultrasound of the axilla when performed. Bilateral screening tomosynthesis and 2D mammography including computer-aided detection (CAD) when performed. COMPARISON: 1. MG MM SURGICAL SPECIMEN RT 07/09/2020 11:07 AM 2. MG MM DIG MAMM DX UNILAT RT CAD 07/09/2020 9:07 AM FINDINGS: MAMMOGRAPHY: Breast composition: The breast tissue is heterogeneously dense, which may obscure small masses. Mass: None. Architectural distortion: Stable post operative architectural distortion in the right lateral breast is due to interval lumpectomy for atypia. Calcifications: None. Asymmetric density: None. Skin thickening: None. Axillary adenopathy: None. ULTRASOUND: Right solid masses: None. Right cystic masses: None. Right architectural distortion: None. Right acoustical shadowing: None. Right skin thickening: None. Right axillary adenopathy: None. Left solid masses: None. Left cystic masses: Minimal subcentimeter cystic change is present in the left breast. Left architectural distortion: None. Left acoustical shadowing: None. Left skin thickening: None. Left axillary adenopathy: None. IMPRESSION: No mammographic or sonographic evidence of malignancy. Annual screening is recommended unless otherwise clinically indicated. ASSESSMENT: BI-RADS Category 2: Benign
== END ==
PROVIDERS: PCP Family Medicine; Visit Provider Surgery
DX: N61.1 Abscess of the breast and nipple (principal); N63.10 Unspecified lump in the right breast, unspecified quadrant; Z12.31 Encounter for screening mammogram for malignant neoplasm of breast
CPT/HCPCS: 76641; 77063; 77067

== ENCOUNTER → 2021-08-17 12:52 | Outpatient (CLI) | payer MEDICARE, BC, SELFPAY ==
--- NOTE | 2021-08-17 12:53 | US_ITS ---
PROCEDURE: US TRANSVAGINAL CLINICAL INDICATION: post menopausal bleeding COMPARISON: No exams were available for comparison FINDINGS: UTERUS: 8cm x 4cmx 4cm with a combined endometrial thickness of 7.9mm. 1.1 x 0.6 cm area of decreased echogenicity posterior aspect of the uterine fundus/body junction. Suspect small fibroid. LEFT OVARY: [id number] with a volume of 3.2ml. RIGHT OVARY: [id number] with a volume of 5.6ml. 1.8 cm benign-appearing right ovarian cyst No cul-de-sac fluid IMPRESSION: Probable small uterine fibroid. Slightly thickened endometrium for a postmenopausal patient. Exogenous hormones could lead to endometrial thickening. Dictated by: Demarcus Oneal MD 08/17/2021 15:21 Demarcus Oneal MD in OV 08/17/2021 15:21
== END ==
PROVIDERS: PCP Family Medicine; Visit Provider Nurse Practitioner Obstetrics & Gynecology
DX: N95.0 Postmenopausal bleeding (principal)
CPT/HCPCS: 76830

== ENCOUNTER → 2021-10-08 16:53 | Outpatient (CLI) | payer MEDICARE, BC, SELFPAY | PROVIDERS: Visit Provider Nurse Practitioner Family | DX: Z20.822 Contact with and (suspected) exposure to COVID-19 (principal) | CPT/HCPCS: C9803; U0003; U0005 ==

== ENCOUNTER → 2021-10-21 13:58 | Outpatient (CLI) | payer MEDICARE, BC, SELFPAY ==
[2021-10-21 14:14] LABS: Basophils # 0.1 K/mm3 (0-0.2); Basophils % 1.1 % (0.1-2.0); Eosinophils # 0.3 K/mm3 (0.0-0.4); Eosinophils % 6.7 % (0.1-12.0); Hematocrit 41.9 % (37.0-47.0); Hemoglobin 13.4 g/dL (12.2-16.2); Lymphocytes # 1.8 K/mm3 (0.7-4.5); Lymphocytes % 37.2 % (10-50); Mean Corpuscular HGB Conc 31.9 g/dL (31.8-35.4); Mean Platelet Volume 8.1 fl (7.4-10.4); Monocytes # 0.3 K/mm3 (0.1-1.0); Monocytes % 6.2 % (1.7-9.3); Neutrophils # 2.4 K/mm3 (1.8-7.8); Neutrophils % 48.9 % (37.0-80.0); Platelet Count 256 K/mm3 (142-424); Red Blood Count 4.31 M/mm3 (4.20-5.40); Red Cell Distribution Width 12.7 % (11.5-17.5); White Blood Count 4.9 K/mm3 (4.8-10.8)
[2021-10-21 15:10] LABS: Anion Gap 11.1 mEq/L (5-15); Blood Urea Nitrogen 13 mg/dl (7-17); Calcium 9.3 mg/dl (8.4-10.2); Carbon Dioxide 29 mmol/L (22.0-30.0); Chloride 103 mmol/L (98-107); Estimated Glomerular Filt Rate 127 ml/min (>60); GFR (African American) 153 ML/MIN (>60); Glucose 94 mg/dl (74-100); Potassium 4.1 mmoL/L (3.5-5.1); Sodium 139 mmol/L (136-145)
== END ==
PROVIDERS: PCP Family Medicine; Visit Provider Nurse Practitioner Obstetrics & Gynecology
DX: Z01.818 Encounter for other preprocedural examination (principal); R06.83 Snoring; Z11.52 Encounter for screening for COVID-19; N95.0 Postmenopausal bleeding; N93.9 Abnormal uterine and vaginal bleeding, unspecified; N84.0 Polyp of corpus uteri
CPT/HCPCS: 36415; 80048; 85025; C9803; U0003; U0005

== ENCOUNTER 2021-10-24 06:03 | Day surgery (SDC) | payer MEDICARE, BC, SELFPAY ==
[2021-10-19 10:32] VITALS: BMI 29.6
[2021-10-24] VITALS (11 sets, daily range): BP systolic 110–145; BP diastolic 70–98; PULSE 74–92; RESP 14–18; TEMP 36.9–37.2; O2SAT 94–99
--- NOTE | 2021-10-24 07:01 | HMH.ANESCL ---
[facility] Anesthesia Checklist - Structural Data Admitted From: Home Planned Operative Procedure/s: hyst,d/c Consent for Planned Operative Procedure(s) Verified: Yes - Additional verifications Anesthesia Reactions: Yes (nausea) Hx Blood Transfusions: Yes Blood Transfusion Reaction: No - Airway Assessment C-Spine Mobility Assessed: No (cervical fusion, limited rotation) TMJ Mobility Assessed: Yes Dentition: Good Dentition - Neurological Assessment Level of Consciousness: Awake, Alert, Appropriate - Anesthesia Plan Anesthesia Risk discussed: Yes Anesthesia Plan: Verified ASA Class: II Anesthesia Type: General [facility] History I have reviewed the patient's past medical history: Yes Medical History: Reports:: Gastroesophageal Reflux Disease(GERD), Hypertension, Palpitations Denies:: Cancer, Diabetes Mellitus Type 1, Diabetes Mellitus Type 2, Internal Pacemaker, MRSA, Seizures *Have you ever received a pneumonia vaccine?: No *Have you received a flu vaccine this season?: Yes Other Medical History: Reports: Thyroid Disease. Denies: Blood Transfusion Reaction Anesthesia experience/problems:: none Laterality Cases: Bilateral: Breast Biopsy Other Surgeries: Yes: No Previous Surgery, Cardiac Catheterization, Colonoscopy, Thyroidectomy, Other. 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
--- NOTE | 2021-10-24 07:59 | HMH.ANESI ---
[facility] Anesthesia Record Part I Intake, IV Amount: 500 Estimated blood loss (mL): 50 Urine output (mL): 0 Blood Pressure: 143/98 SaO2: 95 Pulse Rate: 91 Respiratory Rate: 16 Temperature: 98.9 F Patient is:: Drowsy, Stable Stable to PACU at:: 07:55
--- NOTE | 2021-10-24 08:07 | P.OP_ITS ---
Date of procedure: 10/24/21 Pre-op Diagnosis:: Postmenopausal bleeding, endometrial polyp Post-op Diagnosis:: Postmenopausal bleeding Procedure performed:: Hysteroscopy, dilation and curettage, MyoSure endometrial sampling Surgeon:: Michael Parkinson MD HAND UMBRELLA TIPPER:: Beny Pappas Anesthesia: LMA Estimated blood loss (mL): 50 Clinical Note:: She is a 56-year-old postmenopausal lady who complains of postmenopausal bleeding. An ultrasound showed a slightly thickened endometrium. It was also suggestive of a polyp. As result of that she was offered hysteroscopy, D&C and polypectomy. Operative findings:: She had a normal-appearing endometrial cavity. The posterior aspect of the endometrium was somewhat lush. There was no evidence of a polyp. The rest the endometrium appeared atrophic. Operative note:: She was taken the operating room where LMA anesthesia was found be adequate. She was prepped draped normal sterile fashion in the lithotomy position. A weighted speculum is placed in the vagina and the anterior lip of the cervix was grasped with a tenaculum. Using Sorensen dilators I dilated the cervix to approximately 6 mm. I then inserted the MyoSure hysteroscope into the uterine cavity using saline as a distending media. The findings were as previously dictated. I then performed a gentle curettage. After reinspecting the endometrial cavity I realized that I did not get a very good sample of the posterior aspect of the endometrium. Using the MyoSure device I was able to strip the entire endometrium from the posterior wall. She tolerated procedure well and was taken the recovery room in excellent condition. All sponges, instrument and needle counts were correct. The estimated blood loss was less than 50 cc. Condition: stable Disposition: PACU Specimens:: Endometrial curettings Complications:: None
--- NOTE | 2021-10-24 08:26 | SUR.PHASEI ---
0824- detailed report given to misael block in post op by misael ledezma at this time.
--- NOTE | 2021-10-24 10:43 | HMH.ANESII ---
[facility] Anesthesia Record Part II Discharge Time: 08:25 Destination: Surgical Day Care (OP Surgery) PACU nurse assessment reviewed?: Yes Patient Condition:: Good Anesthesia Complications:: None Swallowing reflex intact?: Yes Cyanosis?: No Blood Pressure: 124/75 Pulse Rate: 74 Temperature: 98.7 F Mental Status: Alert & Oriented Pain level:: 1 Nausea and/or vomitting:: None Intake, IV Amount: 0
== END 2021-10-24 08:58 | disposition home or self-care (01) ==
LOC: OR 06:05
PROVIDERS: PCP Family Medicine; Visit Provider Nurse Practitioner Obstetrics & Gynecology
PROC: 0UB98ZZ Excision of Uterus, Via Natural or Artificial Opening Endoscopic (ICD-10-PCS; CPT 58558; principal; 2021-10-24 07:30)
DX: N95.0 Postmenopausal bleeding (principal); N93.9 Abnormal uterine and vaginal bleeding, unspecified; N84.0 Polyp of corpus uteri; K21.9 Gastro-esophageal reflux disease without esophagitis; I10 Essential (primary) hypertension; R00.2 Palpitations; E07.9 Disorder of thyroid, unspecified; Z72.0 Tobacco use; Z88.6 Allergy status to analgesic agent; Z88.5 Allergy status to narcotic agent; Z79.899 Other long term (current) drug therapy; Z79.82 Long term (current) use of aspirin
CPT/HCPCS: 58563; 88305; 96374; J2405

== ENCOUNTER → 2022-01-02 11:17 | Outpatient (CLI) | payer MEDICARE, BC, SELFPAY ==
--- NOTE | 2022-01-02 11:34 | ECG_ITS ---
APPROVED REPORT Exam: Resting ECG HR:80 bpm ECG Measurements Heart Rate 80 AXES FL 162 P 47 QRSd 83 QRS -15 QT 384 T 40 QTc 420 Conclusion SINUS RHYTHM LOW QRS VOLTAGE IN PRECORDIAL LEADS [QRS DEFLECTION < 1.0 mV IN CHEST LEADS] BORDERLINE ECG UNCONFIRMED REPORT Electronically signed by : Neil Vásquez MD 01/02/2022 15:57:36
[2022-01-02 12:16] LABS: Basophils % 0.6 % (0.1-2.0); Eosinophils # 0.3 K/mm3 (0.0-0.4); Eosinophils % 5.4 % (0.1-12.0); Hematocrit 44.9 % (37.0-47.0); Hemoglobin 14.4 g/dL (12.2-16.2); Lymphocytes # 1.6 K/mm3 (0.7-4.5); Lymphocytes % 32.4 % (10-50); Mean Corpuscular Hemoglobin 31.6 pg (27.0-31.2); Mean Corpuscular Volume 98.6 fl (81-99); Mean Platelet Volume 8.2 fl (7.4-10.4); Monocytes # 0.4 K/mm3 (0.1-1.0); Monocytes % 7.8 % (1.7-9.3); Neutrophils # 2.7 K/mm3 (1.8-7.8); Neutrophils % 53.7 % (37.0-80.0); Platelet Count 267 K/mm3 (142-424); Red Blood Count 4.55 M/mm3 (4.20-5.40); Red Cell Distribution Width 13.1 % (11.5-17.5); White Blood Count 5.1 K/mm3 (4.8-10.8)
[2022-01-02 13:16] LABS: Anion Gap 8.9 mEq/L (5-15); Blood Urea Nitrogen 11 mg/dl (7-17); Calcium 9.1 mg/dl (8.4-10.2); Carbon Dioxide 28 mmol/L (22.0-30.0); Chloride 106 mmol/L (98-107); Estimated Glomerular Filt Rate 103 ml/min (>60); GFR (African American) 124 ML/MIN (>60); Glucose 104 mg/dl (74-100); Potassium 4.9 mmoL/L (3.5-5.1); Sodium 138 mmol/L (136-145)
== END ==
PROVIDERS: Visit Provider Nurse Practitioner Obstetrics & Gynecology
DX: Z01.818 Encounter for other preprocedural examination (principal); Z11.52 Encounter for screening for COVID-19; N81.4 Uterovaginal prolapse, unspecified; N81.2 Incomplete uterovaginal prolapse
CPT/HCPCS: 36415; 80048; 85025; 93005; C9803; U0003; U0005

== ENCOUNTER 2022-01-04 06:38 | Observation (INO) | payer MEDICARE, BC, SELFPAY ==
[2022-01-02 08:40] VITALS: BMI 29.6
[2022-01-02 14:45] VITALS: BP 123/69; PULSE 8; RESP 17; O2SAT 94
[2022-01-04] VITALS (25 sets, daily range): BP systolic 104–138; BP diastolic 57–89; PULSE 75–95; RESP 12–18; TEMP 36.4–43; O2SAT 93–97
--- NOTE | 2022-01-04 07:05 | HMH.ANESCL ---
[facility] Anesthesia Checklist - Patient Identification Patient Identification: Arm Band - Structural Data Admitted From: Home Planned Operative Procedure/s: [facility] Consent for Planned Operative Procedure(s) Verified: Yes - NPO Status Verified Time NPO: 00:00 - Additional verifications Anesthesia Reactions: Yes (nausea) Hx Blood Transfusions: Yes Blood Transfusion Reaction: No - Airway Assessment C-Spine Mobility Assessed: Yes TMJ Mobility Assessed: Yes Dentition: Good Dentition - Neurological Assessment Level of Consciousness: Awake Hx Seizures: No Numbness or tingling in extremities: No - Anesthesia Plan Anesthesia Risk discussed: Yes Anesthesia Plan: Verified ASA Class: II Anesthesia Type: General [facility] History I have reviewed the patient's past medical history: Yes Medical History: Reports:: Gastroesophageal Reflux Disease(GERD), Hypertension, Palpitations Denies:: Cancer, Diabetes Mellitus Type 1, Diabetes Mellitus Type 2, Internal Pacemaker, MRSA, Seizures *Have you ever received a pneumonia vaccine?: No *Have you received a flu vaccine this season?: Yes Other Medical History: Reports: Thyroid Disease. Denies: Blood Transfusion Reaction Anesthesia experience/problems:: PONV Laterality Cases: Bilateral: Breast Biopsy Other Surgeries: Yes: No Previous Surgery, Cardiac Catheterization, Colonoscopy, Dilation and Curettage, Thyroidectomy, Other. 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
--- NOTE | 2022-01-04 07:44 | HMH.PHAINT ---
home medicaiton list verified using list from outpatient pharmacy
--- NOTE | 2022-01-04 08:23 | HMH.PHAINT ---
MEDICATION RECONCILIATION COMPLETED ON PATIENT USING EXTERNAL FILL HISTORY FROM PHARMACY. -CHASITY MAGALLON, NICKD
--- NOTE | 2022-01-04 10:15 | HMH.OPNOTE ---
Date of procedure: 01/04/22 Pre-op Diagnosis:: Uterovaginal prolapse, cystocele, failure pessary Post-op Diagnosis:: Uterovaginal prolapse, cystocele, failure pessary Procedure performed:: Laparoscopically assisted vaginal hysterectomy, bilateral oophorectomy Surgeon:: Michael Parkinson MD Light Equipment Operator(s):: Dr. KINCAID FRAME BANDER:: Stacia Lambert Anesthesia: GETA Estimated blood loss (mL): 150 Clinical Note:: She is a 56-year-old lady who complains of uterovaginal prolapse. She has a cystocele. She feels pressure in the pelvis. We had attempted to use a pessary but she really did not like the pessary. As result of that we offered her laparoscopic-assisted vaginal hysterectomy and cystocele repair. The risks and benefits of surgery discussed the patient prior to surgery. Operative findings:: She had an anteverted small uterus with a small 1 cm fibroid posteriorly. The tubes had been previously removed. The right ovary was normal but the left ovary was adherent to the sigmoid colon and epiploica of the sigmoid colon. The rest the pelvis appeared normal. There was not adhesion of omentum to the anterior abdominal wall where she had a previous tubal ligation through a small laparotomy. Operative note:: She was taken to the operating room where general anesthesia was found be adequate. She was prepped and draped in normal sterile fashion in the semilithotomy position. A weighted speculum was placed in the vagina and the anterior lip of the cervix was grasped with a tenaculum. An acorn uterine manipulator was then placed within the cervical os. I then changed gloves. I injected 10 cc of 0.5% ropivacaine around the umbilicus and made a small incision within the umbilicus. I inserted a Veress needle into the abdominal cavity. The abdominal cavity was then insufflated with carbon dioxide gas to a pressure of 20 mmHg. I then inserted an 11 mm trocar under direct vision. I injected through and through the pubic hairline, made a small incision here and inserted a 5 mm trocar under direct vision. I identified the inferior epigastric arteries on the left side, went lateral to these and injected through and through. I then made a small incision and inserted an 11 mm trocar under direct vision. A similar 11 mm trocar was placed on the right side. The left round ligament was then grasped and cut through with harmonic scalpel. This was followed by opening up the peritoneum anteriorly to the midline. I then grasped the tube on the left side and cut through this. This is followed by cutting through the left utero-ovarian ligament. I used Harmonic scalpel on the coagulation mode. I then took down the posterior aspect of the broad ligament to the level of the uterosacral ligament. I then skeletonized the uterine arteries on the left side and placed hemoclips on these. Using the harmonic scalpel on coagulation mode adjacent to the cervix I then took down these uterine arteries. I then further freed up the bladder anteriorly and laterally on the left side. I then turned my attention to the right side where I grasped the right round ligament. The right tube was adherent to the right pelvic sidewall and using harmonic scalpel I was able to free this up. I then cut through the right round ligament. I then took down the anterior peritoneum to the midline joining up with the other side. I further dissected the bladder off. The posterior aspect of the right broad ligament was then taken down with harmonic scalpel. I skeletonized the uterine arteries on the right side. I applied hemoclips to the uterine arteries and staying adjacent to the cervix on the right side I took down the uterine arteries with harmonic scalpel on coagulation mode. I further freed up the bladder. We then assured hemostasis. The left tube was then freed up with harmonic scalpel on its infundibulopelvic ligament and 2 Endoloops were applied to the infundibulopelvic ligament. The ovary w
--- NOTE | 2022-01-04 10:17 | P.PN_ITS ---
[facility] Anesthesia Record Part I Intake, IV Amount: 800 Estimated blood loss (mL): 150 Urine output (mL): 150 Blood Pressure: 114/59 SaO2: 93 Pulse Rate: 78 Respiratory Rate: 12 Temperature: 98.8 F Patient is:: Drowsy, Oral/Nasal airway Stable to PACU at:: 10:16
--- NOTE | 2022-01-04 10:54 | PC.NURSE ---
Report received from [facility] (PACU)
--- NOTE | 2022-01-04 11:15 | PC.NURSE ---
11:15- Pt arrived to floor from PACU via bed and O.R. staff x2.
--- NOTE | 2022-01-04 11:15 | SUR.PHASEI ---
1104- detailed report called to misael thompson on Ob floor at this time 1106- pt left in stable condition with misael thompson on ob floor by misael connelly and misael hernandes
--- NOTE | 2022-01-04 12:28 | P.CONPHA_ITS ---
[facility] Pharmacy VTE Monitoring - Patient Demographics Admission date: 01/04/22 Report Date: 01/04/22 Time: 12:28 Allergies/Adverse Reactions: Patient Allergies acetaminophen Allergy (Unknown, Verified 01/02/22 08:54) codeine Allergy (Unknown, Verified 01/02/22 08:54) hydrocodone Allergy (Unknown, Verified 01/02/22 08:54) morphine Allergy (Unknown, Verified 01/02/22 08:54) Height: 1.65 m Weight: 80.739 kg - VTE Risk Was VTE Risk Assessment Performed: No VTE Score: 1 VTE Risk Level: Very Low Risk Clinical Trial Participant: No - Prophylaxis VTE Prophylaxis Ordered?: Yes Types of VTE Prophylaxis: IPCS Knee High (POST OP), Pharmacological Location of Applied Device: Bilateral Lower Extremeties Pharmacologic Type: Enoxaparin
[2022-01-04 13:05] LABS: Microscopic,Cath URINE MICROSCOPIC (MICROSCOPIC)
[2022-01-04 13:22] LABS: Appearance,Urine/Cath CLEAR (Clear); Bilirubin,Cath Negative (Negative); Blood, Urine/Cath 1+ (Negative); Color,Urine/Cath YELLOW (Yellow); Glucose,Urine/Cath (UA) Negative (Negative); Ketones,Urine/Cath Negative (Negative); Leukocyte Esterase,Cath Negative (Negative); Nitrate,Cath Negative (Negative); PH,Urine/Cath 5.5 (5.0-8.5); Protein,Urine/Cath Negative (Negative); Specific Gravity, Urine/Cath 1.025 (1.005-1.030); Urobilinogen,Cath 0.2 EU/dl (0.2)
[2022-01-04 14:13] LABS: Squamous Epithelial Ur./Cath Occasional #/hpf (0-5)
--- NOTE | 2022-01-04 14:13 | PC.NURSE ---
Family x2 at bs.
[2022-01-04 16:24] LABS: Hematocrit 39.7 % (37.0-47.0); Hemoglobin 12.7 g/dL (12.2-16.2)
--- NOTE | 2022-01-04 17:00 | PC.NURSE ---
Pt has rested well throughout the day. Pain has been well controlled with Dilaudid and Toradol. (+) BS all quads, Lungs CTA bilat, 4 lap sites to abdomen CDI, scant amt of sero-sang drainage on bottom dressing. Afebrile, all vitals have been wnl, 1200mls Clear yellow urine via Denis. IV LR continues infusing at 125ml/hr.
[2022-01-05 04:00] VITALS: BP 126/64; PULSE 82; RESP 17; TEMP 36.8; O2SAT 97
--- NOTE | 2022-01-05 05:04 | PC.NURSE ---
PT HAS RESTED WELL THIS SHIFT, BLT LUNGS CTA. BOWEL SOUNDS PRESENT IN ALL 4 QUADRANTS. PT IV PATENT AND INFUSING WELL. ABDOMEN SOFT AND TENDER TO TOUCH, X4 LAP SITES TO ABDOMEN C/D/I. SCUDS IN PLACE. SALGADO CATHETER REMOVED. PT DENIES SOA, HEADACHE, N/V. PT MEDICATED FOR PAIN PER EMAR. VSS
--- NOTE | 2022-01-05 06:00 | PC.NURSE ---
PT UP TO THE BATHROOM WITH X2 ASSISTANCE. PT TOLERATED WELL.
[2022-01-05 07:36] VITALS: BP 135/75; PULSE 79; TEMP 36.9
--- NOTE | 2022-01-05 07:36 | HMH.ANESII ---
[facility] Anesthesia Record Part II Discharge Time: 10:56 Destination: Second Floor PACU nurse assessment reviewed?: Yes Patient Condition:: Good Anesthesia Complications:: None Swallowing reflex intact?: Yes Cyanosis?: No Blood Pressure: 135/75 Pulse Rate: 79 Temperature: 98.5 F Mental Status: Alert & Oriented Pain level:: 5 Nausea and/or vomitting:: Nauseated Intake, IV Amount: 0
[2022-01-05 07:38] LABS: Chloride 109 mmol/L (98-107); Sodium 137 mmol/L (136-145)
[2022-01-05 07:41] LABS: Blood Urea Nitrogen 6 mg/dl (7-17); Calcium 7.5 mg/dl (8.4-10.2); Carbon Dioxide 26 mmol/L (22.0-30.0); Creatinine Clearance Estimated 130 mL/min (50-200); Estimated Glomerular Filt Rate 103 ml/min (>60); GFR (African American) 124 ML/MIN (>60); Glucose 111 mg/dl (74-100)
[2022-01-05 08:00] VITALS: BP 109/60; PULSE 95; RESP 18; TEMP 36.5; O2SAT 96
[2022-01-05 08:30] VITALS: O2SAT 96
--- NOTE | 2022-01-05 09:01 | PC.NURSE ---
dr. dumas at bedside.
--- NOTE | 2022-01-05 09:22 | HMH.HP ---
*Admission Date: 01/04/22 *Chief complaint: Uterovaginal prolapse, cystocele *History of present illness: She is a 56-year-old lady who complains of descensus of the uterus as well as pressure in the vagina. We have tried a pessary but this did not seem to work for her. She also has a cystocele. As result of that she was offered laparoscopic-assisted vaginal hysterectomy, bilateral oophorectomy and cystocele repair. [facility] History I have reviewed the patient's past medical history: Yes Medical History: Reports:: Gastroesophageal Reflux Disease(GERD), Hypertension, Palpitations Denies:: Cancer, Diabetes Mellitus Type 1, Diabetes Mellitus Type 2, Internal Pacemaker, MRSA, Seizures *Have you ever received a pneumonia vaccine?: No *Have you received a flu vaccine this season?: No Other Medical History: Reports: Thyroid Disease. Denies: Blood Transfusion Reaction Anesthesia experience/problems:: PONV Laterality Cases: Bilateral: Breast Biopsy Other Surgeries: Yes: No Previous Surgery, Cardiac Catheterization, Colonoscopy, Dilation and Curettage, Thyroidectomy, Other. 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 , Uterine Fibroids Review of Systems - Review of Systems Review of systems:: pertinent systems reviewed and negative unless documented below Meds Home Medications Medication Instructions Recorded Confirmed Type levothyroxine 75 mcg tablet 75 mcg PO DAILY 90 Days #90 04/20/18 01/02/22 History nebivolol 2.5 mg tablet 2.5 mg PO DAILY tab 12/28/20 01/02/22 History venlafaxine 37.5 mg tablet 37.5 mg PO DAILY tab 12/28/20 01/02/22 History Aspirin 81 mg PO DAILY 05/09/21 01/04/22 History Atorvastatin Calcium [Lipitor 20mg 20 mg PO DAILY 05/09/21 01/02/22 History Tab] Esomeprazole Magnesium 40 mg PO DAILY 01/02/22 01/02/22 History Estradiol/Norethindrone Acet 1 patch TD DIRECTED PRN 01/04/22 01/04/22 History [CombiPatch] Allergies Allergy/AdvReac Type Severity Reaction Status Date / Time acetaminophen Allergy Unknown Verified 01/02/22 08:54 codeine Allergy Unknown Verified 01/02/22 08:54 hydrocodone Allergy Unknown Verified 01/02/22 08:54 morphine Allergy Unknown Verified 01/02/22 08:54 Exam Vital signs and Labs for Last 24 Hours: Temp Pulse Resp BP Pulse Ox 97.7 F 95 H 18 109/60 L 96 01/05/22 08:00 01/05/22 08:00 01/05/22 08:00 01/05/22 08:00 01/05/22 08:00 Laboratory Results - last 24 hr 01/04/22 09:37: Urine Color Yellow, Urine Appearance Clear, Urine pH 5.5, Ur Specific [place] 1.025, Urine Protein Negative, Urine Glucose (UA) Negative, Urine Ketones Negative, Urine Blood 1+, Urine Nitrate Negative, Urine Bilirubin Negative, Urine Urobilinogen 0.2, Ur Leukocyte Esterase Negative, Urine RBC 5-10, Urine WBC 3-5, Ur Squamous Epith Cells Occasional, Urine Bacteria None 01/04/22 15:55: Hgb 12.7, Hct 39.7 01/05/22 06:51: Sodium 137, Potassium 4.0, Chloride 109 H, Carbon Dioxide 26, Anion Gap 6.0, BUN 6 L D, Creatinine 0.60, Estimated Creat Clear 130, Estimated GFR 103, Est GFR ( Amer) 124, Glucose 111 H, Calcium 7.5 L I & O for Last 24 hours: Intake & Output 01/02/22 01/03/22 01/04/22 01/05/22 11:59 11:59 11:59 11:59 Intake Total 800 / 800 0 / 0 Output Total 3150 / 3150 Balance 800 / 800 -3150 / -3150 Weight 178 lb - Constitutional no acute distress - *Routine HEENT Exam Head: Present: normocephalic Eye: Present: EOMI, PERRL ENT: Present: mucous membranes moist - *Routine Neck Exam Present: supple
--- NOTE | 2022-01-05 09:25 | HMH.DCSUM ---
General - General Admission date:: 01/04/22 Discharge date: 01/05/22 HPI HPI: She is a 56-year-old lady who complains of descensus of the uterus as well as pressure in the vagina. We have tried a pessary but this did not seem to work for her. She also has a cystocele. As result of that she was offered laparoscopic-assisted vaginal hysterectomy, bilateral oophorectomy and cystocele repair. Hospital Course Hospital Course: On January 04, 2022 she underwent a laparoscopic-assisted vaginal hysterectomy and bilateral oophorectomy. She had a previous bilateral salpingectomy. We also did an anterior repair. She has done well postoperatively and has remained afebrile throughout her hospitalization. We are currently waiting her H&H but it was 12.7 last night. Her electrolytes are normal this morning. She denies any shortness of breath, chest pain or calf tenderness. Her incisions are clean and dry. Her chest is clear to auscultation and her heart sounds are normal. Her belly is soft. We will discharge her home to follow-up with me in approximately 2 weeks time. She will continue with her home medications. She was given a prescription for Dilaudid 2 mg number 20 tablets to take every 4-6 hours as needed for pain. She will take ibuprofen as well. She was given Zofran as well to help with nausea when she takes her Dilaudid. She was given the usual instructions with respect to limiting her activity, driving and sexual activity. Her condition on discharge is stable and improved. Objective Vital signs: Temp Pulse Resp BP Pulse Ox 97.7 F 95 H 18 109/60 L 96 01/05/22 08:00 01/05/22 08:00 01/05/22 08:00 01/05/22 08:00 01/05/22 08:00 no acute distress - *Routine HEENT Exam Head: Present: normocephalic Eye: Present: EOMI, PERRL ENT: Present: mucous membranes moist - *Routine Respiratory Exam Present: CTA bilaterally - *Routine Cardiovascular Exam Present: RRR - *Routine Abdominal Exam Present: soft, normoactive bowel sounds. Absent: tenderness Comments: Incisions are clean and dry - *Routine Extremities Exam Absent: cyanosis, clubbing, edema - *Routine Skin Exam Present: warm. Absent: rash Results Labs on day of discharge: Labs from last 24 hours 01/05/22 01/04/22 01/04/22 06:51 15:55 09:37 Hgb 12.7 Hct 39.7 Sodium 137 Potassium 4.0 Chloride 109 H Carbon Dioxide 26 Anion Gap 6.0 BUN 6 L D Creatinine 0.60 Estimated Creat Clear 130 Estimated GFR 103 Est GFR ( Amer) 124 Glucose 111 H Calcium 7.5 L Urine Color Yellow Urine Appearance Clear Urine pH 5.5 Ur Specific [place] 1.025 Urine Protein Negative Urine Glucose (UA) Negative Urine Ketones Negative Urine Blood 1+ Urine Nitrate Negative Urine Bilirubin Negative Urine Urobilinogen 0.2 Ur Leukocyte Esterase Negative Urine RBC 5-10 Urine WBC 3-5 Ur Squamous Epith Cells Occasional Urine Bacteria None DS: Diagnosis - Discharge Diagnosis (1) Cystocele with prolapse Status: Acute (2) Incomplete uterovaginal prolapse Status: Acute Discharge Plan - Patient Discharge Instructions ACTIVITY: No heavy lifting DIET: continue same diet Additional Instructions: No heavy lifting or strenuous activity, and nothing in the vagina for 6 weeks. Patient Instructions: DI for Surgical Site Infection, DI for Postoperative Pain, Hysterectomy -- Laparoscopic Surgery - Follow up Plan Follow up with: Michael Parkinson MD [Staff Physician] - 01/18/22 10:00 am Disposition: Home, Self-Care Condition at discharge:: Stable Home Medications: Home Medications Medication Instructions Recorded Confirmed Type levothyroxine 75 mcg tablet 75 mcg PO DAILY 90 Days #90 04/20/18 01/02/22 History nebivolol 2.5 mg tablet 2.5 mg PO DAILY tab 12/28/20 01/02/22 History venlafaxine 37.5 mg tablet 37.5 mg PO DAILY tab 12/28/2001/02
--- NOTE | 2022-01-05 10:15 | PC.NURSE ---
discharge education provided at this time. encouraged questions and she v/u
[2022-01-05 10:20] LABS: Hematocrit 33.9 % (37.0-47.0); Red Blood Count 3.55 M/mm3 (4.20-5.40); White Blood Count 9.9 K/mm3 (4.8-10.8)
--- NOTE | 2022-01-05 10:20 | PC.NURSE ---
Dressing removed and steri strips in place. Dried blood noted. bandaids applied. educated on wound care. she v/u
[2022-01-05 10:21] LABS: Mean Corpuscular HGB Conc 32.4 g/dL (31.8-35.4); Mean Corpuscular Volume 95.5 fl (81-99); Mean Platelet Volume 10.1 fl (7.4-10.4); Platelet Count 231 K/mm3 (142-424); Red Cell Distribution Width 12.4 % (11.5-17.5)
--- NOTE | 2022-01-05 10:36 | HMH.PHAINT ---
I spoke with the patient today about her medication list. Went over the new medications that were being sent in for the patient. Also reviewed with her the medications she was to continue on at home. When we spoke, she did not have any questions or concerns. The patient was provided a copy of the medication list.
[2022-01-05 15:42] LABS: Basophils % 0.1 % (0.1-2.0); Eosinophils % 0.2 % (0.1-12.0); Lymphocytes # 1.8 K/mm3 (0.7-4.5); Lymphocytes % 18.6 % (10-50); Monocytes % 10.6 % (1.7-9.3); Neutrophils # 6.9 K/mm3 (1.8-7.8)
== END 2022-01-05 11:03 | disposition home or self-care (01) ==
LOC: OB 06:38
PROVIDERS: Admitting Provider Nurse Practitioner Obstetrics & Gynecology; PCP Family Medicine; Visit Provider Nurse Practitioner Obstetrics & Gynecology
PROC: 0UT9FZZ Resection of Uterus, Via Natural or Artificial Opening With Percutaneous Endoscopic Assistance (ICD-10-PCS; principal; 2022-01-04 07:30)
DX: N81.2 Incomplete uterovaginal prolapse (principal); E03.9 Hypothyroidism, unspecified; T83.89XA Other specified complication of genitourinary prosthetic devices, implants and grafts, initial encounter; Z79.890 Hormone replacement therapy; Z79.899 Other long term (current) drug therapy
CPT/HCPCS: 58552; G0378; 36415; 80048; 81001; 85014; 85018; 85025; 88307; 96372; 96374; J2405

== ENCOUNTER → 2022-02-21 15:19 | Outpatient (CLI) | payer MEDICARE, BC, SELFPAY ==
[2022-02-21 15:57] LABS: Chloride 105 mmol/L (98-107)
[2022-02-21 15:58] LABS: Potassium 4.1 mmoL/L (3.5-5.1); Sodium 138 mmol/L (136-145)
[2022-02-21 16:00] LABS: Alanine Aminotransferase 29 U/L (12-78); Albumin Level 4.3 g/dl (3.5-5.0); Alkaline Phosphatase 85 U/L (38-126); Anion Gap 10.1 mEq/L (5-15); Aspartate Amino Transferase 42 U/L (14-36); Bilirubin,Total 0.6 mg/dl (0.2-1.3); Blood Urea Nitrogen 10 mg/dl (7-17); Carbon Dioxide 27 mmol/L (22.0-30.0); Estimated Glomerular Filt Rate 127 ml/min (>60); GFR (African American) 153 ML/MIN (>60)
[2022-02-21 16:01] LABS: Albumin/Globulin Ratio 1.6 (1.1-1.8); Calcium 9.1 mg/dl (8.4-10.2); Globulin 2.7 g/dL (1.3-3.2); Glucose 112 mg/dl (74-100)
[2022-02-21 16:06] LABS: Basophils # 0.1 K/mm3 (0-0.2); Basophils % 2.4 % (0.1-2.0); Eosinophils # 0.3 K/mm3 (0.0-0.4); Hematocrit 38.9 % (37.0-47.0); Hemoglobin 12.9 g/dL (12.2-16.2); Lymphocytes # 1.7 K/mm3 (0.7-4.5); Lymphocytes % 32.2 % (10-50); Mean Corpuscular HGB Conc 33.2 g/dL (31.8-35.4); Mean Corpuscular Hemoglobin 31.9 pg (27.0-31.2); Mean Platelet Volume 8.6 fl (7.4-10.4); Monocytes # 0.4 K/mm3 (0.1-1.0); Monocytes % 7.1 % (1.7-9.3); Neutrophils # 2.7 K/mm3 (1.8-7.8); Neutrophils % 53.4 % (37.0-80.0); Platelet Count 287 K/mm3 (142-424); Red Blood Count 4.05 M/mm3 (4.20-5.40); Red Cell Distribution Width 12.8 % (11.5-17.5); White Blood Count 5.1 K/mm3 (4.8-10.8)
== END ==
PROVIDERS: Visit Provider Nurse Practitioner Obstetrics & Gynecology
DX: R10.2 Pelvic and perineal pain (principal); Z48.89 Encounter for other specified surgical aftercare
CPT/HCPCS: 80053; 85025

== ENCOUNTER → 2022-02-22 08:47 | Outpatient (CLI) | payer MEDICARE, BC, SELFPAY ==
--- NOTE | 2022-02-22 08:47 | CT_ITS ---
FINAL REPORT TECHNIQUE: Axial CT images of the abdomen and pelvis were obtained before and after the administration of IV contrast. This study was performed with techniques to keep radiation doses as low as reasonably achievable (ALARA). Individualized dose reduction techniques using automated exposure control or adjustment of mA and/or kV according to the patient''s size were employed. CLINICAL HISTORY: Lower Abdominal Pain , Post Surgery(6wks out) FINDINGS: Abdomen: The lung bases are clear. The heart is normal in size. There is an 8 mm mass in the inferior right hepatic lobe favoring a cyst. The gallbladder is present. The spleen is unremarkable. No adrenal masses present. The pancreas has an unremarkable appearance. There is a 13 mm cyst in the lower pole of the left kidney. There is a 2nd cystic area in the mid left kidney measuring 11 mm. This is a cysts or possible calyceal diverticulum. There is focal scarring in the mid left kidney. The aorta is normal in caliber. There is no free fluid or adenopathy. There is an umbilical hernia containing fat. Precontrast images demonstrate a calcification in the mid left kidney. Pelvis: The appendix is normal. The urinary bladder is unremarkable. No inflammatory process is seen. There is no evidence of mass or adenopathy. There is no evidence of bowel obstruction. There has been hysterectomy. There is sigmoid diverticulosis. IMPRESSION: 8 mm liver mass favoring a cyst. Left renal cyst with a 2nd area that could represent a cyst or possible calyceal diverticulum. Small calcification in the mid left kidney. Sigmoid diverticulosis without diverticulitis. Reviewed, Interpreted and Dictated by Mango Tellez III, MD Transcribed by Vincent Garrison Authenticated by Mango Tellez III, MD on 02/22/2022 10:51:28 AM [facility]
== END ==
PROVIDERS: PCP Nurse Practitioner Family; Visit Provider Nurse Practitioner Obstetrics & Gynecology
DX: G89.18 Other acute postprocedural pain (principal); R10.30 Lower abdominal pain, unspecified
CPT/HCPCS: 74178; Q9967

== ENCOUNTER → 2022-03-20 16:37 | Outpatient (CLI) | payer MEDICARE, BC, SELFPAY ==
[2022-03-20 17:20] LABS: Blood Urea Nitrogen 11 mg/dl (7-17); Estimated Glomerular Filt Rate 103 ml/min (>60); GFR (African American) 124 ML/MIN (>60)
== END ==
PROVIDERS: PCP Family Medicine; Visit Provider Family Medicine
DX: Z01.812 Encounter for preprocedural laboratory examination (principal); R16.0 Hepatomegaly, not elsewhere classified
CPT/HCPCS: 36415; 82565; 84520

== ENCOUNTER → 2022-03-21 09:03 | Outpatient (CLI) | payer MEDICARE, BC, SELFPAY ==
--- NOTE | 2022-03-21 09:03 | MR_ITS ---
FINAL REPORT CLINICAL HISTORY: attn: liver. ABNORMAL CT 02-22-22. LEFT UPPER BACK PAIN. 17ML PROHANCE GIVEN. COMPARISON: 02/22/2022 FINDINGS: Multiplanar MR imaging of the abdomen was performed without and with contrast. There is a 9 mm mass in the inferior right hepatic lobe with imaging characteristics consistent with a cyst. There is no evidence of biliary ductal dilatation. The gallbladder has an unremarkable appearance. There are 2 cysts in left kidney measuring up to 11 mm. There is mild scarring in the lateral left kidney. No other mass is identified. No abnormal fluid collection is seen. No abnormal contrast enhancement is seen on the postcontrast images. IMPRESSION: Hepatic and renal cysts as above. Reviewed, Interpreted and Dictated by Mango Tellez III, MD Transcribed by Jayne Choi Authenticated and [facility]
== END ==
PROVIDERS: PCP Family Medicine; Visit Provider Family Medicine
DX: R16.0 Hepatomegaly, not elsewhere classified (principal)
CPT/HCPCS: 74183

== ENCOUNTER → 2022-06-21 16:29 | Outpatient (CLI) | payer MEDICARE, BC, SELFPAY ==
--- NOTE | 2022-06-21 16:38 | XR_ITS ---
PROCEDURE INFORMATION: Exam: XR Entire Spine, 6 or More Views, Scoliosis Exam date and time: 06/21/2022 4:41 PM Age: 56 years old Clinical indication: Pain; Other: Neck and upper back; Prior surgery; Additional info: Acute neck and upper back pain. HX of fusion of cervical spine TECHNIQUE: Imaging protocol: XR of the entire spine. 6 or more views. Evaluation for scoliosis. COMPARISON: CR CXR CHEST(2 VIEWS-NOT PORTABLE) 07/06/2016 11:22 AM FINDINGS: Bones/joints: Multiple radiographs of the cervical and thoracic spine are provided. There is no abnormal curvature of the cervical or thoracic spine. Mature osseous fusion is seen at the C6-C7 level. Spondylitic changes are noted at the C5-C6 and C7-T1. The no anterior wedging deformity is seen. No acute lucent fracture lines visualized. No destructive osseous lesions are seen. There are mild degenerative endplate changes at the mid and lower thoracic spinal levels. Soft tissues: Normal. IMPRESSION: 1. Multiple radiographs of the cervical and thoracic spine demonstrate no abnormal curvature. 2. Mature osseous fusion at C6-C7. 3. Degenerative changes of the cervical and thoracic spine.
== END ==
PROVIDERS: PCP Nurse Practitioner Family; Visit Provider Nurse Practitioner
DX: M54.2 Cervicalgia (principal); M54.6 Pain in thoracic spine
CPT/HCPCS: 72084

== ENCOUNTER → 2022-07-14 12:44 | Outpatient (CLI) | payer MEDICARE, BC, SELFPAY ==
--- NOTE | 2022-07-14 12:45 | US_ITS ---
PROCEDURE INFORMATION: Exam: US Right Breast, Complete US Left Breast, Complete MG Bilateral Screening 3D Mammography Exam date and time: 07/14/2022 12:59 PM Age: 56 years old Clinical indication: History of benign excisional biopsies bilaterally. Her mother had breast cancer. TECHNIQUE: Imaging protocol: Complete ultrasound of all four quadrants of the Right breast and the retroareolar regions, including ultrasound of the axilla when performed. Complete ultrasound of all four quadrants of the Left breast and the retroareolar regions, including ultrasound of the axilla when performed. Bilateral Screening tomosynthesis and 2D mammography including computer-aided detection (CAD) when performed. COMPARISON: 1. MG MM DIG SCREENING MAMM BI W/CAD 07/11/2021 9:53 AM 2. MG MM SURGICAL SPECIMEN RT 07/09/2020 11:07 AM 3. MG MM DIG MAMM DX UNILAT RT CAD 07/09/2020 9:07 AM 4. MG MM DIG SCREENING MAMM BI W/CAD 04/06/2020 10:16 AM FINDINGS: MAMMOGRAPHY: Breast composition: There are scattered areas of fibroglandular density. Mass: No suspicious mass. Architectural distortion: Postsurgical right architectural distortion with related surgical clips in the upper outer aspect. Calcifications: No suspicious calcifications. Asymmetric density: None. Skin thickening: None. Axillary adenopathy: None. ULTRASOUND: Bilateral sonography, all 4 quadrants, retroareolar and axilla. On the right, complicated cysts, at 1 o'clock 2 cm from the nipple measuring 0.5 x 0.4 x 0.4 cm and at 7 o'clock 8 cm from the nipple measuring 0.7 x 0.6 x 0.4 cm. A shadowing from scarring annotated at post lumpectomy site in the upper outer quadrant at 9 o'clock. Sonographically unremarkable right axillary lymph node. On the left, complicated cysts, at 12 o'clock 3 cm from the nipple measuring 0.9 by 0.9 x 1.0 cm, which is larger than on 07/11/2021 when it measured 0.6 x 0.8 x 0.4 cm, at 1 o'clock 2 cm from the nipple measuring 1.0 x 0.6 x 0.3 cm, which is larger than 07/11/2021 when it measured 0.4 x 0.4 x 0.2 cm, and at 3 o'clock 2 cm from the nipple measuring 0.8 by 0.6 x 0.8 cm - probably correlates with the finding annotated at 2 o'clock on 07/11/2021, when it measured 0.6 cm. Sonographically unremarkable left axillary lymph node. IMPRESSION: Probably benign bilateral cystic changes a little larger and more numerous than prior, suggest six-month follow-up targeted bilateral ultrasound on the right at 1 and 7 o'clock and on the left at 12, 1, and 3 o'clock, unless otherwise clinically indicated. ASSESSMENT: Screening mammogram BIRADS: BI-RADS Category 2: Benign Overall BIRADS: BI-RADS Category 3: Probably benign
== END ==
PROVIDERS: PCP Nurse Practitioner Family; Visit Provider Surgery
DX: N64.59 Other signs and symptoms in breast (principal); R89.7 Abnormal histological findings in specimens from other organs, systems and tissues; Z12.31 Encounter for screening mammogram for malignant neoplasm of breast
CPT/HCPCS: 76641; 77063; 77067

== ENCOUNTER → 2022-07-18 09:02 | Outpatient (POV) | payer MEDICARE, BC, SELFPAY | PROVIDERS: Visit Provider Dermatology | DX: Z00.00 Encounter for general adult medical examination without abnormal findings (principal) ==

== ENCOUNTER → 2023-01-12 13:50 | Outpatient (CLI) | payer MEDICARE, BC, SELFPAY ==
[2023-01-12 13:19] LABS: Chloride 104 mmol/L (98-107)
[2023-01-12 13:20] LABS: Basophils % 0.3 % (0.1-2.0); Eosinophils # 0.2 K/mm3 (0.0-0.4); Eosinophils % 4.2 % (0.1-12.0); Hematocrit 42.1 % (37.0-47.0); Hemoglobin 13.4 g/dL (12.2-16.2); Lymphocytes # 1.7 K/mm3 (0.7-4.5); Lymphocytes % 28.9 % (10-50); Mean Corpuscular HGB Conc 31.9 g/dL (31.8-35.4); Mean Corpuscular Hemoglobin 30.6 pg (27.0-31.2); Mean Corpuscular Volume 95.9 fl (81-99); Mean Platelet Volume 8.4 fl (7.4-10.4); Monocytes # 0.5 K/mm3 (0.1-1.0); Monocytes % 8.5 % (1.7-9.3); Neutrophils # 3.4 K/mm3 (1.8-7.8); Neutrophils % 58.1 % (37.0-80.0); Platelet Count 281 K/mm3 (142-424); Potassium 4.4 mmoL/L (3.5-5.1); Red Blood Count 4.39 M/mm3 (4.20-5.40); Red Cell Distribution Width 12.4 % (11.5-17.5); Sodium 137 mmol/L (136-145); White Blood Count 5.8 K/mm3 (4.8-10.8)
[2023-01-12 13:22] LABS: Alanine Aminotransferase 31 U/L (12-78); Albumin/Globulin Ratio 1.5 (1.1-1.8); Alkaline Phosphatase 71 U/L (38-126); Anion Gap 10.4 mEq/L (5-15); Aspartate Amino Transferase 36 U/L (14-36); Bilirubin,Total 0.6 mg/dl (0.2-1.3); Blood Urea Nitrogen 10 mg/dl (7-17); Carbon Dioxide 27 mmol/L (22.0-30.0); Estimated Glomerular Filt Rate 126 ml/min (>60); GFR (African American) 153 ML/MIN (>60); Globulin 2.7 g/dL (1.3-3.2); Total Protein,Serum 6.7 g/dl (6.3-8.2)
[2023-01-12 13:23] LABS: Calcium 8.8 mg/dl (8.4-10.2); Chol/HDL Ratio 3.4 (1-3.5); Cholesterol 215 mg/dl (140-200); Glucose 102 mg/dl (74-100); HDL Cholesterol 63 mg/dl (40-60); Triglycerides 158 mg/dl (30-150); VLDL Cholesterol 32 mg/dL (0-40)
[2023-01-12 13:34] LABS: Direct LDL Cholesterol 120.79 mg/dL (100-129)
== END ==
PROVIDERS: PCP Family Medicine; Visit Provider Family Medicine
DX: R53.83 Other fatigue (principal); R60.9 Edema, unspecified; R07.9 Chest pain, unspecified
CPT/HCPCS: 80053; 80061; 84443; 85025

== ENCOUNTER → 2023-01-15 12:54 | Outpatient (CLI) | payer MEDICARE, BC, SELFPAY ==
--- NOTE | 2023-01-15 12:59 | US_ITS ---
PROCEDURE INFORMATION: Exam: US Left Breast, Complete US Right Breast, Complete Exam date and time: 01/15/2023 1:30 PM Age: 57 years old Clinical indication: Short-term radiographic follow-up for probable cystic change TECHNIQUE: Imaging protocol: Complete ultrasound of all four quadrants of the left breast and the retroareolar regions, including ultrasound of the axilla when performed. Complete ultrasound of all four quadrants of the right breast and the retroareolar regions, including ultrasound of the axilla when performed. COMPARISON: US BREAST bilateral COMPLETE 07/14/2022 1:52 PM FINDINGS: Breast: Sonographic images of both breasts including the retroareolar regions, all 4 quadrants and the axilla do not demonstrate any solid masses. Bilateral benign cystic changes present measuring up to 1.5 cm in the left 12 o'clock axis 3 cm from the nipple and up to 0.6 cm in the right 7 o'clock axis 8 cm from the nipple. Surgical scar in the right 9 o'clock axis with architectural distortion noted. No suspicious architectural distortion or acoustical shadowing. No skin thickening or axillary adenopathy. IMPRESSION: Benign bilateral cystic change.Annual bilateral mammographic screening is recommended unless otherwise clinically indicated. ASSESSMENT: BI-RADS Category 2: Benign
== END ==
PROVIDERS: PCP Family Medicine; Visit Provider Surgery
DX: R92.8 Other abnormal and inconclusive findings on diagnostic imaging of breast (principal)
CPT/HCPCS: 76641

== ENCOUNTER 2023-02-28 13:11 | Emergency (ER) | payer MEDICARE, BC, SELFPAY ==
--- NOTE | 2023-02-28 13:10 | ECG_ITS ---
APPROVED REPORT Exam: Resting ECG HR:105 bpm ECG Measurements Heart Rate [address] 156 P 49 QRSd 89 QRS -3 QT 343 T 33 QTc 404 Conclusion SINUS TACHYCARDIA LOW QRS VOLTAGE IN PRECORDIAL LEADS [QRS DEFLECTION < 1.0 mV IN CHEST LEADS] POSSIBLE ANTERIOR MYOCARDIAL INFARCTION , new changes since 01/13 ABNORMAL RHYTHM ECG UNCONFIRMED REPORT Electronically signed by : Neil Vásquez MD 03/01/2023 09:27:13
[2023-02-28 13:11] VITALS: BP 164/100; PULSE 100; RESP 17; TEMP 36.8; O2SAT 98; BMI 31.8
--- NOTE | 2023-02-28 13:25 | HMH.EDHA ---
Discharge Plan Disposition Patient Disposition: Home, Self-Care Condition: Fair Chief Complaint: Headache Prescriptions Prescriptions: No Action Bystolic 2.5 mg tablet 2.5 mg PO DAILY levothyroxine 75 mcg tablet 75 mcg PO DAILY 90 Days Qty: 90 duloxetine [Cymbalta] 20 mg capsule,delayed release(DR/EC) 20 mg PO HS furosemide [Lasix] 20 mg tablet See Rx Instructions .ROUTE .COMPLEX Qty: 60 2RF Rx Instructions: one daily for edema; two daily for severe edema do not take when edema is controlled Wegovy 0.25 mg/0.5 mL pen injector 0.25 mg SQ WEEKLY Qty: 2 3RF Rx Instructions: administer weeks 1 through 4 of therapy estradiol [Estrace] 1 mg tablet 2 mg PO DAILY Qty: 30 11RF atorvastatin 20 MG tablet 20 mg PO DAILY esomeprazole magnesium 40 MG capsule,delayed release(DR/EC) 40 mg PO DAILY Referrals Follow up/Referrals: Provider,Referral, MD [Referring] - See instructions Activity Restrictions/Add. Instructions Additional Instructions/Restrictions: Please follow-up with your primary care doctor if you do not feel better in the next few days. Return immediately to the emergency department if you feel worse in any way and or develop a fever. Clinical Impressions Clinical Impression: Headache Instructions Patient Instructions: DI for Headache, DI for Migraine Discharge ED Provider: Ayleen Mason Headache HPI General Chief Complaint: Headache Stated Complaint: chest pain Time Seen by Provider: 02/28/23 13:25 History of Present Illness HPI Narrative: The patient complains of a headache that began yesterday. She feels mild nausea with that she feels that it is similar to her prior migraine headaches. It hurts to move. She has some photophobia. She denies any fevers. Complaint: headache Related Data Home Medications Medication Instructions Recorded Confirmed levothyroxine 75 mcg tablet 75 mcg PO DAILY THYROID 90 days 04/20/18 01/26/23 ##90 nebivolol 2.5 mg tablet (Bystolic) 2.5 mg PO DAILY Hypertension 12/28/20 01/26/23 atorvastatin 20 mg tablet 20 mg PO DAILY Cholesterol 05/09/21 01/26/23 esomeprazole magnesium 40 mg 40 mg PO DAILY GERD 01/02/22 01/26/23 capsule,delayed release duloxetine 20 mg capsule,delayed 20 mg PO HS 01/12/23 01/26/23 release (Cymbalta) Previous Rx's Medication Instructions Recorded estradiol 1 mg tablet (Estrace) 2 mg PO DAILY #30 tabs 12/27/22 furosemide 20 mg tablet (Lasix) See Rx Instructions .Route 01/12/23 .COMPLEX #60 tabs semaglutide (weight loss) 0.25 0.25 mg (0.5 mL) SQ WEEKLY #2 mL 01/12/23 mg/0.5 mL subcutaneous pen injector (Wegovy) Allergies Allergy/AdvReac Type Severity Reaction Status Date / Time acetaminophen Allergy Unknown Verified 01/26/23 11:42 codeine Allergy Unknown Verified 01/26/23 11:42 hydrocodone Allergy Unknown Verified 01/26/23 11:42 morphine Allergy Unknown Verified 01/26/23 11:42 [facility] History Hepatitis A Screen Attestation statement:: This patient has been screened for Hepatitis A risk factors. Medical History: Reports: Gastroesophageal Reflux Disease(GERD), Hypertension and Palpitations; Denies: Cancer, Diabetes Mellitus Type 1, Diabetes Mellitus Type 2, Internal Pacemaker, MRSA or Seizures Other Medical History: Reports Thyroid Disease and Other (kindey mass); Denies Blood Transfusion Reaction Laterality Cases: Bilateral: Breast Biopsy Other Surgeries: No Pacemaker Amputation: No Fractures: No Comment: C4, 5, 6 fusion. Kidney stone removed from left kidney. Hysteroscopy D&C Polypectomy w/myosure 10/24/2021 Social History Smoking Status: Current some day smoker Tobacco Type: cigarettes # Packs/Day (cigarettes): 1 Alcohol Intake: current Alcohol Intake Frequency:: a few times a month Substance Use Type: denies use Occupational Status: employed Housing: house Household Members: spouse Family Hx:: Coronary Artery Disease [employer]IS [employer]IC history: Sp
--- NOTE | 2023-02-28 13:30 | PC.NURSE ---
patient given blanket, no other needs at this time
[2023-02-28 13:37] LABS: Basophils % 0.4 % (0.1-2.0); Eosinophils # 0.2 K/mm3 (0.0-0.4); Eosinophils % 2.8 % (0.1-12.0); Hematocrit 42.3 % (37.0-47.0); Hemoglobin 13.6 g/dL (12.2-16.2); Lymphocytes # 1.6 K/mm3 (0.7-4.5); Lymphocytes % 27.9 % (10-50); Mean Corpuscular HGB Conc 32.2 g/dL (31.8-35.4); Mean Corpuscular Hemoglobin 29.6 pg (27.0-31.2); Mean Platelet Volume 7.9 fl (7.4-10.4); Monocytes # 0.4 K/mm3 (0.1-1.0); Monocytes % 6.8 % (1.7-9.3); Neutrophils # 3.6 K/mm3 (1.8-7.8); Platelet Count 276 K/mm3 (142-424); Red Cell Distribution Width 12.1 % (11.5-17.5); White Blood Count 5.8 K/mm3 (4.8-10.8)
[2023-02-28 13:42] LABS: Chloride 105 mmol/L (98-107); Sodium 138 mmol/L (136-145)
[2023-02-28 13:43] LABS: Potassium 3.7 mmoL/L (3.5-5.1)
[2023-02-28 13:45] LABS: Blood Urea Nitrogen 7 mg/dl (7-17); Creatinine Clearance Estimated 156 mL/min (50-200); Estimated Glomerular Filt Rate 126 ml/min (>60); GFR (African American) 153 ML/MIN (>60)
[2023-02-28 13:46] LABS: Anion Gap 10.7 mEq/L (5-15); Calcium 8.5 mg/dl (8.4-10.2); Carbon Dioxide 26 mmol/L (22.0-30.0); Glucose 93 mg/dl (74-100)
[2023-02-28 14:04] LABS: Troponin I < 0.01 ng/ml (0.00-0.034)
[2023-02-28 14:50] VITALS: BP 176/97; PULSE 88; RESP 17; TEMP 36.6; O2SAT 96
== END 2023-02-28 14:55 | disposition home or self-care (01) ==
PROVIDERS: Emergency Provider Emergency Medicine; PCP Family Medicine
DX: R07.9 Chest pain, unspecified (principal); G43.909 Migraine, unspecified, not intractable, without status migrainosus; R11.0 Nausea; F17.210 Nicotine dependence, cigarettes, uncomplicated; R00.0 Tachycardia, unspecified
CPT/HCPCS: 80048; 84484; 85025; 93005; 96374; 96375; 99285

== ENCOUNTER → 2023-03-22 14:28 | Outpatient (CLI) | payer MEDICARE, BC, SELFPAY ==
--- NOTE | 2023-03-22 14:28 | CT_ITS ---
FINAL REPORT CLINICAL HISTORY: headaches FINDINGS: Axial images of the head were obtained without contrast. Coronal reformatted images were also obtained.This study was performed with techniques to keep radiation doses as low as reasonably achievable (ALARA). Individualized dose reduction techniques using automated exposure control or adjustment of mA and/or kV according to the patient''s size were employed. There is no evidence of intracranial hemorrhage or mass. The ventricular size is within normal limits. There is no evidence of shift of the midline structures. No abnormal extra axial fluid collection is identified. No skull abnormality is seen on the bone window images. IMPRESSION: No acute intracranial abnormality. Reviewed, Interpreted and Dictated by Mango Tellez III, MD Transcribed by Wendy Urena Authenticated and [facility]
== END ==
PROVIDERS: PCP Family Medicine; Visit Provider Family Medicine
DX: R51.9 Headache, unspecified
CPT/HCPCS: 70450

== ENCOUNTER 2023-04-24 06:31 | Day surgery (SDC) | payer MEDICARE, BC, SELFPAY ==
[2023-04-19 12:26] VITALS: BMI 29.6
[2023-04-24 06:48] VITALS: BP 132/79; PULSE 81; RESP 18; TEMP 36.2; O2SAT 99
--- NOTE | 2023-04-24 06:56 | EXP.ANES.CKL ---
[facility] Disclaimer: The information contained in this section may have been updated after the patient was seen, as this information can be updated by other users. Medical History History of tachycardia Surgical History History of breast biopsy History of colonoscopy History of hysterectomy History of lumpectomy of right breast History of thyroidectomy History of tubal ligation Hx of fusion of cervical spine Family History Other Family history of cancer Family history of kidney cancer Family history of leukemia Family history of lung cancer Family history of melanoma Family history of prostate cancer Family history of uterine cancer Social History Smoking Status: Former smoker second hand exposure: No alcohol intake: current counseling provided: none substance use type: denies use current occupational status: employed Travel in the last 8 weeks: None household members: spouse housing: house current occupational exposures/hazards: No caffeine: Yes [facility] Anesthesia Checklist Patient Identification Patient Identification: Arm Band and Verbal (Name & ) Structural Data Admitted From: Home Planned Operative Procedure/s: Colonoscopy Consent for Planned Operative Procedure(s) Verified: Yes NPO Status Verified Time NPO: 00:00 Additional verifications Anesthesia Reactions: Yes (nausea) Hx Blood Transfusions: Yes Blood Transfusion Reaction: No Airway Assessment C-Spine Mobility Assessed: Yes TMJ Mobility Assessed: Yes Dentition: Good Dentition Neurological Assessment Level of Consciousness: Awake Hx Seizures: No Numbness or tingling in extremities: No Anesthesia Plan Anesthesia Risk discussed: Yes Anesthesia Plan: Verified ASA Class: II Anesthesia Type: MAC
[2023-04-24 07:22] VITALS: O2SAT 99
--- NOTE | 2023-04-24 08:03 | HMH.SCOPE ---
Procedure: Date: 04/24/23 Patient Date of :: 1965 Procedure Performed:: Colonoscopy with polypectomy Indications:: Screening History of polyps Performing Provider:: Leland Alvarez MD Referring Provider:: . Sedation:: Monitored anesthesia care Procedure:: After informed consent was obtained the patient was taken to the endoscopy suite. Sedation ensued after the patient was transferred to the left lateral decubitus position. Pulse, blood pressure, and oxygen saturation were monitored throughout the procedure. Digital rectal exam revealed no significant abnormality. The colonoscope was placed in position. The entire colon was evaluated. The colonoscope was carefully removed and the patient was transferred to recovery in stable condition. Please see findings and specimens below for detail. Findings:: Bowel preparation fair Mild/early hemorrhoidal tags Scattered diverticulosis (most prominent in sigmoid colon) Fairly severe tortuosity of the sigmoid colon Moderate spasticity Polyps (see specimens) Specimens:: Complex lobulated polyp at 60 cm (cold snare) Complex partially pedunculated lobulated polyp at 45 cm (cold snare) Sessile lobulated polyp at 40 cm (cold snare) Recommendations:: Timing of repeat colonoscopy is pending pathology but likely be between 2-3 years secondary to size/nature of polyps, tortuosity, and spasticity. Complications:: No immediate Estimated blood obtained (mL): 1 Colonoscopy Component Colonoscopy Component Was a colonoscopy performed during today's procedure?: Yes Recommended follow up colonoscopy of at least 10 years?: No If no, follow up colonoscopy recommended in ___ years?: 2-3 years Reason for not recommending >/= 10 yr follow-up interval?: Size/nature of polyps; sigmoid tortuosity
[2023-04-24 08:09] VITALS: BP 112/64; PULSE 87; RESP 16; TEMP 36.2; O2SAT 97
[2023-04-24 08:19] VITALS: BP 122/80; PULSE 80; RESP 16; O2SAT 100
[2023-04-24 08:29] VITALS: BP 127/76; PULSE 73; RESP 16; O2SAT 98
[2023-04-24 08:39] VITALS: BP 138/98; PULSE 87; RESP 18; O2SAT 97
== END 2023-04-24 08:40 | disposition home or self-care (01) ==
PROVIDERS: PCP Family Medicine; Visit Provider Surgery
PROC: 0DJD8ZZ Inspection of Lower Intestinal Tract, Via Natural or Artificial Opening Endoscopic (ICD-10-PCS; principal; 2023-04-24 07:30)
DX: Z12.11 Encounter for screening for malignant neoplasm of colon (principal); Z86.010 Personal history of colon polyps; D12.4 Benign neoplasm of descending colon; D12.5 Benign neoplasm of sigmoid colon; K57.30 Diverticulosis of large intestine without perforation or abscess without bleeding; K56.2 Volvulus
CPT/HCPCS: 45385; 88305; J2704

== ENCOUNTER → 2023-07-17 10:02 | Outpatient (CLI) | payer MEDICARE, BC, SELFPAY ==
--- NOTE | 2023-07-17 10:03 | MM_ITS ---
PROCEDURE INFORMATION: Exam: MG Bilateral Screening 3D Mammography Exam date and time: 07/17/2023 9:49 AM Age: 57 years old Clinical indication: History of benign excisional biopsies bilaterally. Her mother had breast cancer. TECHNIQUE: Imaging protocol: Bilateral Screening tomosynthesis and 2D mammography including computer-aided detection (CAD) when performed. COMPARISON: 1. MG MM DIG SCREENING MAMM BI W/CAD 07/14/2022 12:59 PM 2. MG MM DIG SCREENING MAMM BI W/CAD 07/11/2021 9:53 AM 3. MG MM SURGICAL SPECIMEN RT 07/09/2020 11:07 AM 4. MG MM DIG MAMM DX UNILAT RT CAD 07/09/2020 9:07 AM FINDINGS: MAMMOGRAPHY: Breast composition: There are scattered areas of fibroglandular density. Mass: No suspicious mass. Architectural distortion: Postsurgical right architectural distortion with related surgical clips in the upper outer aspect. Calcifications: No suspicious calcifications. Asymmetric density: None. Skin thickening: None. Axillary adenopathy: None. IMPRESSION: No mammographic evidence of malignancy. Annual screening is recommended unless otherwise clinically indicated. ASSESSMENT: BI-RADS Category 1: Negative
== END ==
PROVIDERS: PCP Family Medicine; Visit Provider Surgery
DX: Z12.31 Encounter for screening mammogram for malignant neoplasm of breast (principal)
CPT/HCPCS: 77063; 77067

== ENCOUNTER 2024-03-19 14:55 | Outpatient (CLI) | payer MEDICARE, BC, SELFPAY ==
--- NOTE | 2024-03-19 14:55 | MM_ITS ---
PROCEDURE INFORMATION: Exam: US Left Breast, Complete US Right Breast, Complete MG Bilateral Diagnostic Breast Tomosynthesis Exam date and time: 03/19/2024 3:37 PM Age: 58 years old Clinical indication: Right breast pain; Left breast palpable lump; Painful breasts, possible left breast lump/mass .Positive family history of breast cancer: Mother TECHNIQUE: Imaging protocol: Complete ultrasound of all four quadrants of the left breast and the retroareolar regions, including ultrasound of the axilla when performed. Complete ultrasound of all four quadrants of the right breast and the retroareolar regions, including ultrasound of the axilla when performed. Bilateral Diagnostic tomosynthesis and 2D mammography including computer-aided detection (CAD) when performed. Unilateral or bilateral exam. COMPARISON: 1. MG MM DIG SCREENING MAMM BI W/CAD 07/17/2023 9:49 AM 2. MG MM DIG SCREENING MAMM BI W/CAD 07/14/2022 12:59 PM FINDINGS: MAMMOGRAPHY: Breast composition: The breasts are heterogeneously dense, which may obscure small masses. Breast mammogram findings: There is no stellate mass, suspicious architectural distortion or suspicious microcalcifications in either breast to suggest malignancy. Stable postoperative change in the right breast. Nonspecific coarse nodular parenchyma bilaterally is without interval change. A skin marker was placed over an area of palpable concern in the left approximate 12 o'clock axis. Spot compression is demonstrated a 1 5 cm ovoid mass. No skin thickening or axillary adenopathy. ULTRASOUND: Breast ultrasound findings: Sonographic images of both breasts including the retroareolar regions, all 4 quadrants and the axilla do not demonstrate any solid masses. Minimal cystic change is present bilaterally including a 1.6 cm cyst in the left 12 o'clock axis 3 cm from the nipple corresponding to the area palpable concern. No architectural distortion or acoustical shadowing. No skin thickening or axillary adenopathy. IMPRESSION: No mammographic or sonographic evidence of malignancy. Palpable abnormality in the left breast corresponds to benign cystic change.Annual bilateral mammographic screening is recommended unless otherwise clinically indicated. ASSESSMENT: BI-RADS Category 2: Benign.
== END 2024-03-19 23:59 | disposition home or self-care (01) ==
LOC: RAD 14:55
PROVIDERS: PCP Family Medicine; Visit Provider Obstetrics & Gynecology
DX: N64.4 Mastodynia (principal); N60.01 Solitary cyst of right breast; N60.02 Solitary cyst of left breast; N63.25 Unspecified lump in the left breast, overlapping quadrants
CPT/HCPCS: 76641; 77062; 77066; G0279

== ENCOUNTER 2024-06-30 12:00 | Outpatient (CLI) | payer MEDICARE, BC, SELFPAY ==
[2024-06-30 19:45] LABS: Basophils % 0.6 % (0.1-2.0); Eosinophils # 0.2 K/mm3 (0.0-0.4); Eosinophils % 4.7 % (0.1-12.0); Hematocrit 39.9 % (37.0-47.0); Hemoglobin 13.1 g/dL (12.2-16.2); Lymphocytes # 1.7 K/mm3 (0.7-4.5); Lymphocytes % 40.6 % (10-50); Mean Corpuscular HGB Conc 32.9 g/dL (31.8-35.4); Mean Corpuscular Volume 94.3 fl (81-99); Mean Platelet Volume 8.4 fl (7.4-10.4); Monocytes # 0.3 K/mm3 (0.1-1.0); Monocytes % 7.8 % (1.7-9.3); Neutrophils % 46.3 % (37.0-80.0); Platelet Count 266 K/mm3 (142-424); Red Blood Count 4.23 M/mm3 (4.20-5.40); Red Cell Distribution Width 13.1 % (11.5-17.5); White Blood Count 4.3 K/mm3 (4.8-10.8)
[2024-06-30 20:53] LABS: Alanine Aminotransferase 27 U/L (12-78); Albumin Level 3.9 g/dl (3.5-5.0); Albumin/Globulin Ratio 1.6 (1.1-1.8); Alkaline Phosphatase 57 U/L (38-126); Anion Gap 5.1 mEq/L (5-15); Aspartate Amino Transferase 30 U/L (14-36); Bilirubin,Total 0.7 mg/dl (0.2-1.3); Blood Urea Nitrogen 8 mg/dl (7-17); Carbon Dioxide 29 mmol/L (22.0-30.0); Chloride 106 mmol/L (98-107); Chol/HDL Ratio 3.7 (1-3.5); Cholesterol 247 mg/dl (140-200); Estimated Glomerular Filt Rate 126 ml/min (>60); GFR (African American) 152 ML/MIN (>60); Globulin 2.5 g/dL (1.3-3.2); Glucose 94 mg/dl (74-100); HDL Cholesterol 67 mg/dl (40-60); Potassium 4.1 mmoL/L (3.5-5.1); Sodium 136 mmol/L (136-145); Total Protein,Serum 6.4 g/dl (6.3-8.2); Triglycerides 121 mg/dl (30-150); VLDL Cholesterol 24 mg/dL (0-40)
[2024-06-30 21:04] LABS: Direct LDL Cholesterol 153.38 mg/dL (100-129)
[2024-06-30 21:24] LABS: Thyroid Stimulating Hormone 0.65 uIU/mL (0.465-4.68)
== END 2024-06-30 23:59 | disposition home or self-care (01) ==
LOC: LAB.DROPOF 07-01 10:06
PROVIDERS: PCP Family Medicine; Visit Provider Family Medicine
DX: R53.83 Other fatigue (principal); E78.5 Hyperlipidemia, unspecified; G47.9 Sleep disorder, unspecified
CPT/HCPCS: 80053; 80061; 84443; 85025

== ENCOUNTER 2025-01-12 12:30 | Outpatient (CLI) | payer MEDICARE, BC, SELFPAY ==
[2025-01-12 21:02] LABS: Free T4 (Free Thyroxine) 1.58 ng/dl (0.78-2.19)
[2025-01-12 23:34] LABS: Thyroid Stimulating Hormone 0.82 uIU/mL (0.465-4.68)
== END 2025-01-12 23:59 | disposition home or self-care (01) ==
LOC: LAB.DROPOF 01-13 13:05
PROVIDERS: PCP Nurse Practitioner; Visit Provider Nurse Practitioner
DX: E89.0 Postprocedural hypothyroidism (principal)
CPT/HCPCS: 84439; 84443

== ENCOUNTER 2025-01-15 09:32 | Outpatient (CLI) | payer MEDICARE, BC, SELFPAY ==
--- NOTE | 2025-01-15 09:30 | US_ITS ---
FINAL REPORT TECHNIQUE: Sonographic images of the thyroid gland were obtained in the longitudinal and transverse planes. CLINICAL HISTORY: POST SURGERY HYPOTHYROIDISM FINDINGS: The right lobe has been resected. The left lobe measures 1.6 x 4.8 x 1.7 cm. The left lobe is homogeneous. There are no cystic or solid nodules. The isthmus measures 3 mm. This is normal. IMPRESSION: No nodule seen in the left thyroid lobe. Resection of the right thyroid lobe. Reviewed, Interpreted and Dictated by Lisseth Dewitt MD Transcribed by Jayne Choi Authenticated and [facility]
== END 2025-01-15 23:59 | disposition home or self-care (01) ==
LOC: RAD 09:34
PROVIDERS: PCP Family Medicine; Visit Provider Nurse Practitioner
DX: E89.0 Postprocedural hypothyroidism (principal)
CPT/HCPCS: 76536

== ENCOUNTER 2025-02-02 14:42 | Outpatient (CLI) | payer MEDICARE, BC, SELFPAY ==
--- NOTE | 2025-02-02 14:45 | XR_ITS ---
FINAL REPORT CLINICAL HISTORY: rt trochanteric bursitis FINDINGS: RIGHT HIP Two views of the right hip demonstrate no acute fracture or dislocation. The joint spaces appear normal. Femoral head has a normal smooth contour. The visualized bony structures are well aligned. No soft tissue abnormality is seen. IMPRESSION: No acute bony abnormality. Reviewed, Interpreted and Dictated by Jack Freire MD Transcribed by Luz Ryan Authenticated and [facility]
--- NOTE | 2025-02-02 14:45 | XR_ITS ---
FINAL REPORT CLINICAL HISTORY: Lower back pain with sciatica COMPARISON: 05/23/2019 FINDINGS: 3 views of the lumbar spine were obtained. There is no acute fracture. There is no malalignment. The vertebrae are normal in height. The disc spaces are preserved. Facet sclerosis is noted in the lower lumbar spine. There are surgical clips in the floor of the pelvis. IMPRESSION: No acute process. Reviewed, Interpreted and Dictated by Jack Freire MD Transcribed by Khloe Montgomery Authenticated and [facility]
== END 2025-02-02 23:59 | disposition home or self-care (01) ==
LOC: RAD 14:44
PROVIDERS: PCP Family Medicine; Visit Provider Nurse Practitioner
DX: M54.41 Lumbago with sciatica, right side (principal); M70.61 Trochanteric bursitis, right hip; M41.9 Scoliosis, unspecified
CPT/HCPCS: 72100; 73502

== ENCOUNTER 2025-03-16 15:00 | Outpatient (RCR) | payer MEDICARE, BC, SELFPAY ==
--- NOTE | 2025-02-23 16:27 | HMH.PTOPEV ---
PT Outpatient Evaluation Rehab PT Outpatient Evaluation Start: 02/23/25 15:02 Freq: Status: Active Protocol: Document 02/23/25 15:02 JEFFREY (Rec: 02/23/25 16:27 JEFFREY [id number]) E-signed By Sona Ortiz, PT Outpatient Therapy Subjective History Subjective History Pt is a 59 y/o female who reports chronic LBP pain with onset of R anterolateral hip pain ~2 months ago without known trauma or injury. Pt reports pain started laterally then started hurting into the R groin. Pt also reports intermittent sharp shooting pain down the anterior R leg to the top of her foot that mostly occurs with laying in bed, prolonged walking or driving . Pt denies numbness/tingling or b/b dysfunction. Pt reports pain is aggravated by putting weight on the right leg, standing, walking, stair climbing, driving, transferring in/out of the car, and laying on the left side. Pt states she has to use a step to pattern with stair climbing. Pt reports difficulty/pain with lifting the right leg and states she has to use her arms to help. Pt states the R leg feels weak and like it could buckle. Pt states she walks with a limp, denies use of an AD or falls. Pt reports pain improves with externally rotating the right leg. Pt had xrays of her R hip and lumbar spine on 02/02/25 without significant findings. Pt denies having a MRI of her back or hip. Pt states she was prescribed Nabumetone she is taking 2x/day which has decreased severity of symptoms. Medical History: Hypertension, Palpitations, Post- surgical hypothyroidism, Cystocele, Daytime somnolence, Dyspnea, Incomplete uterovaginal prolapse, Facet arthropathy Special tests: - slump test New diagnosis of No cancer in past 12 months? Chief Complaint Pain Symptom Type Sharp,Dull Symptoms Relieved By Rest/Positioning,Prescription Meds Symptoms Aggravated Standing,Physical Activity,Walking By Current Functional Standing,Squatting,Walking,Stairs Limitations Symptom Description Intermittent Level of pain today 5 (0-10) Pain scale - at its 0 best (0-10) Pain scale - at its 8 worst (0-10) Lumbopelvic Eval Posture Lumbar Spine Posture Neutral Standing Position Assistive device Assistive Devices None / NA Gait Observation General Gait Pattern Decrease Weight Bear (R) Observation Palapation tenderness right lumbar spinal Yes: L1-L3 tenderness buttock tenderness Yes: R greater trochanter, R gluteal mm, R hip flexor Lumbar/Sacral Tenderness Palpation Findings Lumbar/Sacral 3/4 TTP Palpation Overall Comment Accessory Movement L-spine Vertebrae Central P/A Nichols Accessory Movements that Elicit Symptoms L2 bilateral L3 bilateral Range of Motion Lumbar Spine Active 80 Flexion Range of Motion (degrees) Lumbar Spine Active 15 Extension Range of Motion (degrees) Left Lumbar Spine 10 Lateral Flexion Active Range of Motion (degrees) Right Lumbar Spine 10 Lateral Flexion Active Range of Motion (degrees) Manual Muscle Test Right Knee Extension 5 Normal Strength Grade Knee Flexion 5 Normal Strength Grade Hip Flexion Strength 3+ Fair+ Grade Hip Abduction 3+ Fair+ Strength Grade Hip Adduction 4- Good- Strength Grade Hip Extension 3+ Fair+ Strength Grade Ankle Dorsiflexion 5 Normal Strength Grade Altered Sensation Bilateral Comment equal an intact to light touch sensation bilaterally Special Tests Hip Connor (ROSALINDA) Positive Right Test Sciatic Nerve Negative Right Tension Test Unilateral Straight Negative Right Leg Raise (Lasegue) Test Jordan Test Positive Sacroiliac Joint Negative Right Compression Test Sacroiliac Joint Negative Right Distraction Test Hip/Knee Eval ROM right Hip Flexion w/Knee 100 Flexed Active Range of Motion (degrees) Hip External 45 Rotation Active Range of Motion ( degrees) Hip Internal 45 Rotation Active Range of Motion ( degrees) Knee Extension 0 Active Range of Motion (degrees) Knee Flexion Active 125 Range of Motion ( degrees) Oswestry Index Section 1 Pain Intensity The pain comes and goes and is severe Section 2 Personal Care ( increase the pain, but I manage not to change my way of Washing,[place]res[place]) doing it Section 3 Lifting I can only lift very light weights at most Section 4 Walking I cannot walk at all without increasing pain Section 5 Sitting Pain prevents me from sitting for more than 1/2 hour Section 6 Standing I cannot stand more than 10 minutes without increasing pain Section 7 Sleeping Because of my pain, my normal night's sleep is less than 6 hours sleep Section 8 Social Life Pain has restricted my social life and I do not go out often Section 9 Traveling I get extra pain while traveling, but it does not compel me to seek al Section 10 Changing Degreee of My pain is gradually getting worse Pain Score and Risk Level Oswestry Sc 34 Oswestry Risk Level Severe Disability Outpatient Therapy Assessment Impairments Problems/ Palpation Tenderness,Impaired Range of Motion,Impaired Impairmments Strength,Impaired Transfers,Impaired Gait Pattern, Impaired Walking,Impaired Standing,Impaired Household Care,Impaired Stair Climbing Prognosis Rehab Potential Good Clinical Impression Consistent with Yes Diagnosis Short Term Goals Number of Weeks 3 Increase Strength Yes: Improve R hip extension, abduction, flexion MMT to 4-/5 grossly Improve Oswestry Yes: Improve score to 29 or less to improve overall QOL Score Decrease Subjective Yes: Improve pain at worst to 6/10 to improve overall C/O Pain QOL Improve Self Care/ Yes Self Management Patient to be Ind w/ Yes HEP Nursing Home Goals Number of Weeks 6 Increase Range of Yes: Improve R hip flexion AROM to at 110-115 without Motion pain Increase Strength Yes: Improve RLE MMT to 4-4+/5 grossly to assist with function Improve Transfers Yes: report ability to perform car transfer with pain 4 /10 or less Improve Gait Pattern Yes: non-antalgic to decrease fall risk without Assistive Device Improve Ability to Yes: 1 flight reciprocally with pain 4/10 or less to Climb Stairs assist with home navigation Improve Oswestry Yes: Improve score to 24 or less to improve overall QOL Score Decrease Subjective Yes: Improve pain at worst to 6/10 to improve overall C/O Pain QOL Outpatient Therapy Plan of Care Treatment Plan May Include Therapeutic Exercise Yes Including Home Exercise Program Manual Therapy Yes Techniques Neuromuscular Re- Yes education Therapeutic Yes Activities to Return to Previous Functional/Work Level Gait Training Yes ADL/Self Care Yes Education Mechanical Traction Yes Dry Needling Yes Thermal Modalities Yes Electrical Yes Stimulation Ultrasound/ Yes Phonophoresis Iontophoresis Yes Massage Yes Group Therapy for Yes Medicare Eval/Re-Eval Yes Aquatic Therapy Yes Frequency Times per week 2 Duration Number of Weeks 4-6 Addendums This patient is a No candidate for social or vocational rehab ? Patient/Guardian Yes verbally acknowledges understanding of treatment program and consents to further treatment? Patient/Guardian Yes verbally acknowledges understanding of diagnosis, prognosis and goals for treatment? Eval Complexity PT Charges 19081 - Low Complexity Shoulder/Elbow Eval Shoulder Objective Measurements Elbow Objective Measurements PHYSICIAN CERTIFICATION: I certify the specified therapy services for Madelaine Garcia are required, authorized, and reviewed every 30 days.
== END 2025-03-16 23:59 | disposition home or self-care (01) ==
LOC: PT 15:00
PROVIDERS: Visit Provider Nurse Practitioner
DX: M54.41 Lumbago with sciatica, right side (principal); M70.61 Trochanteric bursitis, right hip
CPT/HCPCS: 97110; 97161; 97530

== ENCOUNTER 2025-04-22 13:19 | Outpatient (CLI) | payer MEDICARE, BC, SELFPAY ==
--- OUTSIDE RECORDS SUMMARY | 2025-04-22 13:22 | XMS_ITS | Clinical Summary ---
Author Organization [facility] Address [address] [place] [address] Care Team Providers Care Manager Book Name Role Phone EnzoSona APRN Primary Care Provider [phone] Allergies Active Allergy Reactions Criticality Noted Date Comments Hydrocodone 04/25/2016 Hydromorphone 04/25/2016 Morphine And Codeine 04/25/2016 Oxycodone-Acetaminophen 04/25/2016 Acetaminophen-Codeine 04/25/2016 Medications meclizine (ANTIVERT) 25 MG tablet Take 1 tablet by mouth 3 (three) times a day as needed for dizziness. 30 tablet 5 04/25/2016 Active levothyroxine (SYNTHROID, LEVOTHROID) 75 MCG tablet Take 1 tablet by mouth Daily. 90 tablet 1 12/13/2016 Active polyethylene glycol (MIRALAX) packet Take 17 g by mouth Daily. 12/05/2018 Active estradiol (ESTRACE) 1 MG tablet Take 1 mg by mouth Daily. Active nebivolol (BYSTOLIC) 2.5 MG tablet Take 1 tablet by mouth Daily. 10/04/2022 Active cholecalciferol (VITAMIN D3) 25 MCG (1000 UT) tablet Take 1,000 Units by mouth Daily. Active multivitamin with minerals (CENTRUM ADULTS PO) Take 1 tablet by mouth Daily. Active esomeprazole (nexIUM) 40 MG capsuleIndicatio ns:Gastroesophag eal reflux disease, unspecified whether esophagitis present Take 1 capsule by mouth Every Morning Before Breakfast. 90 capsule 2 11/08/2022 Active atorvastatin (LIPITOR) 20 MG tabletIndication s:Dyslipidemia Take 1 tablet by mouth Daily. 90 tablet 1 11/14/2022 Active DULoxetine (CYMBALTA) 30 MG capsuleIndicatio ns:Depression with anxiety Take 1 capsule by mouth Daily. 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 If month not known, enter X' Black numbers = normal results Red numbers = abnormal results Black X = patient reported normal Red X - patient reported abnormal Referred by: Profession: Other info: Fatigue 12/12/2016 Essential hypertension 05/18/2016 Hypothyroidism 05/12/2016 Paroxysmal SVT (supraventricular tachycardia) Dizziness 04/25/2016 Uncontrolled hypertension 04/25/2016 Chronic back pain 04/25/2016 Depression with anxiety 04/25/2016 Immunizations Immunization Administration Dates Next Due COVID-19 (MODERNA) 1st,2nd,3rd Dose Monovalent 0 11/08/2021,11/08/2020 Fluzone Quad >6mos (Multi-dose) 06/24/2018 Hepatitis A 08/05/2018 Influenza, Unspecified 06/24/2022 Tdap 08/12/2013 Family History Medical History Relation Name Comments Cancer Father Father Hearing loss Father Father Hyperlipidemia Father Father Cancer Mother Kathy Diabetes Mother Kathy Heart disease Mother Kathy Stroke Mother Kathy Arthritis Other Family history Cancer Other Family history Heart disease Other Family history Heart failure Other Family history Hyperlipidemia Other Family history Hypertension Other Family history Kidney disease Other Family history Migraines Other Family history Thyroid disease Other Family history Transient ischemic attack Other Family history Relation Name Status Comments Father Father Mother Kathy Other Family history Social History Tobacco Use Types Packs/Day Years Used Date Smoking Tobacco: Some Days Cigarettes Smokeless Tobacco: Never Comments:Smokes 1-3 at night Alcohol Use Standard Drinks/Week Comments Not Currently 0 (1 standard drink = 0.6 oz pur e alcohol) PHQ-2 Answer Date Recorded Retired PHQ-9: Brief Depression Severity Measure Score 0 11/08/2022 Abuse Screen Answer Date Recorded Unsafe at Home or Work/School Not on file Feels Threatened by Someone? Not on file 05/2023 Does Anyone Keep You from Co ntacting Others or Doint Things Outside the Home? Not on file 07/02/2023 Physical Sign of Abuse Present Not on file 1 Housing Stability Answer Date Recorded Current Living Arrangements Not on file 05/2023 Potentially Unsafe Housing Conditions Not on debbie e 07/02/2023 Family and Community Support Answer Maxim e Recorded Help with Day-to-Day Activities Not on file 07/02/2023 Lonely or Isolated Not on file 07/02/2023 Employment Answer Date Recorded Do you want help finding or keeping work or a donovan b? Not on file 07/02/2023 Disabilities Answer Date Recorded Concentrating, Remembering, or Making Decisions Difficulty Not on file 07/02/2023 Doing Errands Independently Difficulty Not on fi le 07/02/2023 Education Answer Date Recorded Help with school or training? Not on file Preferred Language Not on file 07/02/2023 PHQ-2 Answer Date Recorded Retired PHQ-9: Brief Depression Severity Measure Score 0 11/08/2022 Comments No Sex and Gender Information Value Date Recorded Sex Assigned at Not on file Legal Sex Female 10:20 AM EDT Gender Identity Not on file Sexual Orientation Not on file Last Filed Vital Signs Vital Sign Reading Time Taken Comments Blood Pressure 118/80 11/08/2022 11:21 AM EST Pulse 81 11/08/2022 11:21 AM EST Temperature 36.8 C (98.2 F) 11/08/2022 11:21 AM EST Respiratory Rate 18 11/08/2022 11:21 AM EST Oxygen Saturation 97% 11/08/2022 11:21 AM EST Inhaled Oxygen Concentration - - Weight 89.4 kg (197 lb 1.5 oz) 12/19/2022 12:13 PM EDT Height 165.1 cm (5' 5 ) 12/19/2022 12:13 PM EDT Body Mass Index 32.8 12/19/2022 12:13 PM EDT Plan of Treatment Health Maintenance Due Date Last Done Comments Annual Gynecologic Pelvic an d Breast Exam 1963 Pneumococcal Vaccine 50+ (1 of 2 - PCV) 1982 COLOGUARD 2008 COLON CANCER SCREENING 5 YEA R SIGMOIDOSCOPY 2008 COLONOSCOPY [address]CER SCREENING 2008 [address] COLONOGRAPHY 2008 FECAL OCCULT BLOOD TEST 2008 FIT Testing (1 year) 2008 ZOSTER VACCINE (1 of 2) 2013 TDAP/TD VACCINES (2 - Td or Tdap) 08/12/2023 013 ANNUAL WELLNESS VISIT 11/08/2023 11/08/2022 COVID-19 Vaccine (2023- 5 season) 2024 03/31/2022, 11/08/2021, 08/17/2021, Additional history exists INFLUENZA VACCINE 06/24/2025 07/14/2022, , 08/01/2021, Additional history exists MAMMOGRAM 07/17/2025 07/17/2023, 04/24, 04/06/2020, Additional history exists HEPATITIS C SCREENING Completed 11/08/2022, 023 Procedures Procedure Name Priority Date/Time Associated Diagnosis Comments SCANNED - MAMMO 07/17/2023 HEPATITIS C ANTIBODY Routine 11/08/2022 12:46 PM EST Encounter for wellness examination in adult from Last 3 Months or Most Recently Relevant to Health Maintenance Results * SCANNED - MAMMO (07/17/2023) Anatomical Region Laterality Modality Other Sona Giraldo APRN CHART REVIEW TABS Final R esult * Hepatitis C Antibody (11/08/2022 12:46 PM EST) Hep C Virus Ab Non Reactive Non Reactive [facility] Comment: HCV antibody alone does not differentiate between previously resolved infection and active infection. Equivocal and Reactive HCV antibody results should be followed up with an HCV RNA test to support the diagnosis of active HCV infection. Blood 11/08/2022 12:4 6 PM EST 11/08/2022 Narrative [facility] - 11/09/2022 8:14 AM EST Performed at: 01 - [facility] [address] [place], [place] [id number] Process Architect: David Robins PhD, Phone: [phone] Patient Fasting: Y Sona Giraldo APRN LAB BLOOD ORDERABLES Final R esult [facility] [address] [place] [address], [facility] [address] [place] [address], from Last 3 Months or Most Recently Relevant to Health Maintenance Insurance [facility] [address] MEDICARE A & B Care Teams Manager Book Relationship Specialty Start Date End Date Sona Giraldo APRN PCP - General Family Medicine 11/08/22
--- OUTSIDE RECORDS SUMMARY | 2025-04-22 13:22 | XMS_ITS | Patient Health Record ---
Author Organization [facility] Address [address] [place] [address] Care Team Providers Care Occupational Therapy Department Chair Name Role Phone Merari Mills Unavailable [phone] Allergies Allergen (clinical drug ingredient) Drug/Non Drug Allergy documented on EMR Reaction Allergy Type Onset Date Status CODEINE PHOSPHATE (CODEINE PHOSPHATE SOLN) Unspecified Drug Allergy 05/28/2018 Active tetracycline TETRACYCLINE HCL Unspecified Drug Allergy 05/28 Active Reason For Referral No Information Problems Problem Type SNOMED Code ICD Code Onset Dates Problem Status W/U Status Risk Notes Problem Cervical smear, as part of routine gynecological examination (Z01.419) 8 Active confirmed Annual without abnormal findings Plan Of Treatment No Information Medical (General) History Medical History History ICD Code hydromorphone abn. 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
--- OUTSIDE RECORDS SUMMARY | 2025-04-22 13:22 | XMS_ITS | Clinical Summary ---
Author Organization [facility] Address [address] [place] [address] Care Team Providers Care Assisted Living Executive Director Name Role Phone Jeet Lundberg MD Primary Care Provider [phone] Allergies Active Allergy Reactions Criticality Noted Date Comments Codeine Nausea,Other - pleas e document in the comment field Low 07/24/2012 Hydrocodone Other - please document in the comment field,Rash Low 07/24/2012 nausea and vomiting Hydromorphone Nausea 07/24/2012 Lactose Other - please document in the comment field Low 07/31/2012 Morphine And Codeine Rash Low 07/24/2012 Medications estradiol (Estrace) 1 MG tablet Take 1 tablet by mouth daily. Active cyclobenzaprine (Amrix) 15 MG 24 hr capsule Take 1 capsule by mouth daily as needed for muscle spasms. Do not crush, chew, or split. Active meloxicam (Mobic) 15 MG tablet Take 1 tablet by mouth daily. Active Active Problems Problem Noted Date Diagnosed Date Trochanteric bursitis of both hips 02/06/2025 Encounters Date Type Department Care Team Description 02/06/2025 10:00 AM EDT Office Visit Medical Office Building [facility] [address] [facility] [address] [facility], [address] [place] [address] Savanna Ravi PA Lumbar spondylosis (Primary Dx); Trochanteric bursitis of both hips 02/06/2025 Travel 02/04/2025 Telephone Medical Office Building [facility] [address] [facility] [address] [facility] [address] [facility], [address] [place] [address] Savanna Ravi PA 02/04/2025 Telephone Medical Office Building [facility] [address] [facility] [address] [facility], [address] [place] [address] Savanna Ravi PA 02/02/2025 Orders Only External Location [address] [place] [id number] Sofia Fenton, QUALITY CONTROL ENGINEERING TECHNICIAN 02/02/2025 Orders Only External Location [address] [place] [address] Sofia Fenton, QUALITY CONTROL ENGINEERING TECHNICIAN 02/02/2025 Community Orders Community Practice [address] [place] [address] Jeet Lundberg MD Chronic right-sided low back pain with right-sided sciatica (Primary Dx); Trochanteric bursitis of right hip from Last 3 Months Social History Tobacco Use Types Packs/Day Years Used Date Smoking Tobacco: Unknown Tobacco Cessation:Counseling Given: Yes Alcohol Use Standard Drinks/Week Comments Yes 2 (1 standard drink = 0.6 oz pur e alcohol) Comments Unknown Sex and Gender Information Value Date Recorded Sex Assigned at Not on file Legal Sex Female 7:38 PM EDT Gender Identity Not on file Sexual Orientation Not on file Last Filed Vital Signs Vital Sign Reading Time Taken Comments Blood Pressure 138/87 02/06/2025 10:03 AM EDT Pulse 83 02/06/2025 10:03 AM EDT Temperature - - Respiratory Rate - - Oxygen Saturation 95% 02/06/2025 10:03 AM EDT Inhaled Oxygen Concentration - - Weight 82.8 kg (182 lb 8.7 oz) 02/06/2025 10:03 AM EDT Height 165.1 cm (5' 5 ) 02/06/2025 10:03 AM EDT Body Mass Index 30.38 02/06/2025 10:03 AM EDT Plan of Treatment Health Maintenance Due Date Last Done Comments [facility]-Depression Screening 1965 [facility]-HIV Screening 1965 [facility]-Medicare Annual Wellness (AWV) 1965 [facility]-Infant/Child/Adol SDOH Screenings 1965 [facility]- SDOH Screenings 1981 [facility]Y-Adult SDOH Screenings 1981 [facility]Y-Pap Smear 1984 [facility]-Cervical Cancer Screening 1993 [facility]Y-HPV/Cotest 1993 CT Colonography 2008 Colonoscopy 2008 FIT-DNA 2008 FIT 2008 FOBT 2008 Sigmoidoscopy 2008 [facility]Y-Colorectal Cancer Screening 2008 [facility]-Breast Cancer Screening 2013 [facility]Y-Pneumococcal Vaccine: 50+ Years (1 of 1 - PCV) 2013 [facility]Y-Zoster Vaccines (1 of 2) 2013 [facility]Y-DTaP,Tdap,and Td Vaccines (2 - Td or Tdap) 08/12/2023 08/12/2013 [id number] Vaccine (6 - season) 2024 03/31/2022, 11/08/2021, 08/17/2021, Additional history exists [facility]-Influenza Vaccine (#1) 05/25/202508/15, 07/14/2022, 06/24/2022, Additional history exists [facility]-RSV Vaccine: 60+ Years or (1 - 1-dose 75+ series) 2038 [facility]-Hepatitis A Vaccines Aged Out 08/05/2018 No longer eligible based on patient's age to complete this topic [facility]-Hepatitis C Screening Completed 11/08/2022 [facility]-Obesity Intervention Completed 02/06/2025 HPV Vaccines Aged Out No longer eligi ble based on patient's age to complete this topic UKY-HIB Vaccines Aged Out No longer e ligible based on patient's age to complete this topic UKY-IPV Vaccines Aged Out No longer e ligible based on patient's age to complete this topic UKY-Rotavirus Vaccines Aged Out No lo nger eligible based on patient's age to complete this topic Procedures Procedure Name Priority Date/Time Associated Diagnosis Comments XR OUTSIDE IMAGES 02/02/2025 3:19 PM EDT XR OUTSIDE IMAGES 02/02/2025 3:19 PM EDT from Last 3 Months Results * XR OUTSIDE IMAGES (02/02/2025 3:19 PM EDT) Only the most recent of2 resultswithin the time period is included. Anatomical Region Laterality Modality Radiographic Gissell ging 02/02/2025 3:19 PM EDT Sofia Fenton QUALITY CONTROL ENGINEERING TECHNICIAN IMG XR PROCEDURES Final Result from Last 3 Months Insurance MEDICARE [facility] Care Teams Assisted Living Executive Director Relationship Specialty Start Date End Date Jeet Lundberg MD [facility] [place] [address] PCP - General 02/05/25
--- OUTSIDE RECORDS SUMMARY | 2025-04-22 13:22 | XMS_ITS | Encounter Summary ---
Author Organization [facility] Address [address] [place] [address] Care Team Providers Care Glass Cutter Helper Name Role Phone Jeet Lundberg MD Primary Care Provider [phone] Reason for Referral * Consultation (Routine) - Closed Specialty Diagnoses / Procedures Referred By Kenyetta castanon Referred To Contact Orthopaedic Surgery Diagnoses Chronic right-sided low back pain with right-sided sciatica Trochanteric bursitis of right hip Jeet Lundberg MD [address] [place] [address] Phone: tel: fax: Referral ID Status Reason Start Date Expiration Date V isits Requested Visits Authorized [id number] Closed Specialty Services Required 02/02/2025 08/04/2026 1 1 Encounter Details Date Type Department Care Team (Late st Contact Info) Description 02/02/2025 Community Orders Community Practice [address] [place] [address] Jeet Lundberg MD [address] [place] [address] Chronic right-sided low back pain with right-sided sciatica (Primary Dx); Trochanteric bursitis of right hip Social History Tobacco Use Types Packs/Day Years Used Date Smoking Tobacco: Never Assessed Comments Unknown Sex and Gender Information Value Date Recorded Sex Assigned at Not on file Legal Sex Female 7:38 PM EDT Gender Identity Not on file Sexual Orientation Not on file documented as of this encounter Plan of Treatment Scheduled Referrals Name Type Priority Associated Diagnoses Order Schedule Ambulatory referral to General Orthopaedics Outpatient Referral Routine Chronic right-sided low back pain with right-sided sciatica Trochanteric bursitis of right hip Expected: 02/02/2025 (Approximate), Expires: 08/05/2026 documented as of this encounter Visit Diagnoses Diagnosis Chronic right-sided low back pain with right-sided sciatica- Primary Trochanteric bursitis of right hip documented in this encounter Care Teams Glass Cutter Helper Relationship Specialty Start Date End Date Jeet Lundberg MD [address] [place] [address] PCP - General 02/05/25 documented as of this encounter
--- NOTE | 2025-04-22 13:30 | MM_ITS ---
PROCEDURE INFORMATION: Exam: US Left Breast, Complete US Right Breast, Complete MG Bilateral Diagnostic Breast Tomosynthesis Exam date and time: 04/22/2025 1:45 PM Age: 59 years old Clinical indication: Region of palpable concern left breast. TECHNIQUE: Imaging protocol: Complete ultrasound of all four quadrants of the left breast and the retroareolar regions, including ultrasound of the axilla when performed. Complete ultrasound of all four quadrants of the right breast and the retroareolar regions, including ultrasound of the axilla when performed. Bilateral Diagnostic tomosynthesis and 2D mammography including computer-aided detection (CAD) when performed. Unilateral or bilateral exam. COMPARISON: 1. US BREAST BILAT COMPLETE 01/15/2023 1:30 PM 2. MG MM DIG MAMM BI DX W/CAD 03/19/2024 3:37 PM 3. US BREAST RT COMPLETE 03/19/2024 3:20 PM 4. US BREAST LT COMPLETE 03/19/2024 3:01 PM FINDINGS: MAMMOGRAPHY: Breast composition: The breasts are heterogeneously dense, which may obscure small masses. Breast mammogram findings: Bilateral full field CC and MLO tomosynthesis views were obtained. Left breast spot compression views were also obtained. Mass: Oval equal density circumscribed and obscured masses in the left breast. Architectural distortion: Postsurgical changes are redemonstrated in the right breast. Calcifications: No suspicious calcifications. Asymmetric density: None. Skin thickening: None. Axillary adenopathy: None. ULTRASOUND: Breast ultrasound findings: Right breast ultrasound: Scattered benign simple cysts. Postsurgical changes are redemonstrated in the upper-outer quadrant. No abnormal lymph nodes in the axilla. Left breast ultrasound: Redemonstrated scattered benign cysts throughout the left breast, including in the upper-outer quadrant at 1 o'clock measuring 1.2 cm at 2 o'clock measuring 0.8 cm and at 3 o'clock measuring 1 cm, all of which overlie the region of palpable concern as indicated patient. No solid or suspicious masses. No abnormal lymph nodes in the axilla. IMPRESSION: Benign simple cysts in both breasts.There are no findings suspicious for malignancy. Annual mammographic screening is recommended unless otherwise clinically indicated. ASSESSMENT: BI-RADS Category 2: Benign.
== END 2025-04-22 23:59 | disposition home or self-care (01) ==
LOC: RAD 13:20
PROVIDERS: PCP Family Medicine; Visit Provider Nurse Practitioner Obstetrics & Gynecology
DX: N63.21 Unspecified lump in the left breast, upper outer quadrant (principal); R92.8 Other abnormal and inconclusive findings on diagnostic imaging of breast; R92.321 Mammographic fibroglandular density, right breast; R92.322 Mammographic fibroglandular density, left breast; N60.19 Diffuse cystic mastopathy of unspecified breast; R89.7 Abnormal histological findings in specimens from other organs, systems and tissues; Z98.890 Other specified postprocedural states
CPT/HCPCS: 76641; 77062; 77066; G0279

== ENCOUNTER 2025-05-12 06:23 | Day surgery (SDC) | payer MEDICARE, BC, SELFPAY ==
[2025-05-08 09:47] VITALS: BMI 28.3
[2025-05-12 06:51] VITALS: BP 140/78; PULSE 77; RESP 16; TEMP 36.2; O2SAT 98; BMI 28.3
--- NOTE | 2025-05-12 07:03 | P.HP_ITS ---
HPI HPI HPI: This is a 59-year-old female who presents for colonoscopy. In April 2023 she underwent colonoscopy that was somewhat complicated by significant sigmoid tortuosity. Scattered diverticulosis and mild hemorrhoids noted. Complex tubular adenomas were excised at 60 cm, 45 cm, and [address] [facility] Disclaimer: The information contained in this section may have been updated after the patient was seen, as this information can be updated by other users. Medical History Palpitations Post-surgical hypothyroidism Cystocele Daytime somnolence Dyspnea Incomplete uterovaginal prolapse Facet arthropathy History of tachycardia Surgical History History of tubal ligation History of thyroidectomy Hx of fusion of cervical spine History of lumpectomy of right breast History of hysterectomy History of colonoscopy History of breast biopsy Family History Other Family history of cancer Family history of kidney cancer Family history of leukemia Family history of lung cancer Family history of melanoma Family history of prostate cancer Family history of uterine cancer Social History (Updated 05/12/25 @ 07:00 by Comfort Constantino RN) Smoking Status: Former smoker tobacco type: cigarettes packs per day: 1 second hand exposure: No alcohol intake: current alcohol intake frequency: a few times a month counseling provided: none substance use type: denies use current occupational status: employed Travel in the last 8 weeks?: None household members: spouse housing: house current occupational exposures/hazards: No caffeine: Yes Have you lived/traveled outside US in past 30 days?: No Contact w/someone who lives/traveled outside US past 30 days?: No Exposure to someone with infectious disease in past 14 days?: No Do you have a fever (greater than 100.4 F or 38 C)?: No Have you tested positive for COVID-19?: No Exposed to someone with COVID-19 in past 14 days?: No Do you have a sore throat?: No Do you have a cough?: No Do you have any weakness?: No Are you experiencing any nausea/vomitting?: No Do you have any diarrhea?: No Are you experiencing any unusual bleeding?: No Do you have any muscle aches/pain?: No Do you have any abdominal pain?: No Are you experiencing loss of taste or smell?: No Other Medical History Have you received the Flu Vaccine for this season: No Have you received the Pneumonia Vaccine: Yes Review of Systems Review of Systems Review of systems:: pertinent systems reviewed and negative unless documented below Meds Home Medications and Allergies Home Medications ?Medication ?Instructions ?Recorded ?Confirmed ?Type levothyroxine 75 mcg tablet 75 mcg PO DAILY THYROID #9 0 tabs 06/30/24 05/08/25 Rx atorvastatin 20 mg tablet (Lipitor) 20 mg PO DAILY #90 tabs 07/24/24 05/08/25 Rx esomeprazole magnesium 40 mg See Rx Instructions .Rout e 09/18/24 05/08/25 Rx capsule,delayed release .COMPLEX #90 caps triamcinolone acetonide 0.1 % 1 applic topical BID #80 grams 02/09/25 05/08/25 Rx topical ointment nabumetone 750 mg tablet 750 mg PO BID PRN pain #60 t abs 03/09/25 05/08/25 Rx nebivolol 2.5 mg tablet See Rx Instructions .Route 0 03/12/25 05/08/25 Rx .COMPLEX #90 tabs estradiol 1 mg tablet 2 mg (2 x 1 mg) PO DAILY 90 days 03/25/25 05/08/25 Rx #180 tabs sod picosulf 10 mg-magnes 3.5 175 ml PO DAILY 2 doses #350 mL 04/27/25 05/08/25 Rx gram-citric 12 gram/175 mL oral solution (Clenpiq) New Prescriptions to Start Prescriptions: Allergies Allergy/AdvReac Type Severity Reaction Status Date / Time acetaminophen Allergy Mild Nausea Verified 05/08/25 09:43 codeine Allergy Mild Nausea Verified 05/08/25 09:43 hydrocodone Allergy Mild Nausea Verified 05/08/25 09:43 morphine Allergy Mild Rash Verified 05/08/25 09:43 meloxicam AdvReac Intermediate Palpitation Verified 05/08/25 09:43 s Exam Data for Last 24 hours Vital signs and Labs for Last 24 Hours: Temp Pulse Resp BP Pulse Ox O2 Del Method 97.2 F L 77 16 140/78 98 Room Air 05/12/25 06:51 05/12/25 06:51 05/12/25 06:51 05/12/25 06:51 05/12/25 06:51 05/12/25 06:51 I & O for Last 24 hours: Intake & Output 05/09/25 05/10/25 05/11/25 05/12/25 11:59 11:59 11:59 11:59 Weight 170 lb Constitutional Constitutional: no acute distress *Routine HEENT Exam Head: Present normocephalic Eye: Present EOMI ENT: Present mucous membranes moist *Routine Neck Exam Neck: Present full ROM *Routine Respiratory Exam Respiratory: Absent respiratory distress *Routine Cardiovascular Exam Cardiovascular: Absent tachycardia *Routine Abdominal Exam Abdominal: Present soft *Routine Rectal Exam Rectal:: deferred *Routine Genitalia Exam Genitalia:: deferred *Routine Extremities Exam Extremities: Present full ROM *Routine Skin Exam Skin: Absent erythema *Routine Neurological Exam Neurological: Present alert Assessment and Plan *Assessment and plan (1) History of colon polyps: Status: Acute Category: Medical Code(s): Z86.0100 - Personal history of colon polyps, unspecified Plan: Colonoscopy today I have discussed the risks and benefits including, but not limited to: Bleeding Infection Damage to surrounding tissue Inherent risks of sedation The patient agrees to proceed.
[2025-05-12] MEDS: LACTATED RINGERS 1000ML 1,000 ML 50 ML IV (07:04)
--- NOTE | 2025-05-12 07:06 | EXP.ANES.CKL ---
[facility] Disclaimer: The information contained in this section may have been updated after the patient was seen, as this information can be updated by other users. Medical History Palpitations Post-surgical hypothyroidism Cystocele Daytime somnolence Dyspnea Incomplete uterovaginal prolapse Facet arthropathy History of tachycardia Surgical History History of tubal ligation History of thyroidectomy Hx of fusion of cervical spine History of lumpectomy of right breast History of hysterectomy History of colonoscopy History of breast biopsy Family History Other Family history of cancer Family history of kidney cancer Family history of leukemia Family history of lung cancer Family history of melanoma Family history of prostate cancer Family history of uterine cancer Social History (Updated 05/12/25 @ 07:00 by Comfort Constantino RN) Smoking Status: Former smoker tobacco type: cigarettes packs per day: 1 second hand exposure: No alcohol intake: current alcohol intake frequency: a few times a month counseling provided: none substance use type: denies use current occupational status: employed Travel in the last 8 weeks?: None household members: spouse housing: house current occupational exposures/hazards: No caffeine: Yes Have you lived/traveled outside US in past 30 days?: No Contact w/someone who lives/traveled outside US past 30 days?: No Exposure to someone with infectious disease in past 14 days?: No Do you have a fever (greater than 100.4 F or 38 C)?: No Have you tested positive for COVID-19?: No Exposed to someone with COVID-19 in past 14 days?: No Do you have a sore throat?: No Do you have a cough?: No Do you have any weakness?: No Are you experiencing any nausea/vomitting?: No Do you have any diarrhea?: No Are you experiencing any unusual bleeding?: No Do you have any muscle aches/pain?: No Do you have any abdominal pain?: No Are you experiencing loss of taste or smell?: No [facility] Anesthesia Checklist Patient Identification Patient Identification: Arm Band and Verbal (Name & ) Structural Data Admitted From: Home Planned Operative Procedure/s: colonoscopy Consent for Planned Operative Procedure(s) Verified: Yes Verified Documents: Surgical Consent NPO Status Verified Time NPO: 00:00 Chart Verification Results Verified: None Additional verifications Anesthesia Reactions: Yes (nausea) Hx Blood Transfusions: Yes Blood Transfusion Reaction: No Airway Assessment Mallampati Score:: Class II C-Spine Mobility Assessed: Yes TMJ Mobility Assessed: Yes Dentition: Good Dentition Neurological Assessment Level of Consciousness: Awake, Alert and Appropriate Hx Seizures: No Numbness or tingling in extremities: No Anesthesia Plan Anesthesia Risk discussed: Yes Anesthesia Plan: Verified ASA Class: II Anesthesia Type: MAC
--- NOTE | 2025-05-12 07:06 | HMH.SCOPE ---
Procedure: Date: 05/12/25 Patient Date of :: 1965 Procedure Performed:: Colonoscopy with polypectomy by means other than snare Indications:: History of colon polyps Note: In April 2023 she underwent colonoscopy that was somewhat complicated by significant sigmoid tortuosity. Scattered diverticulosis and mild hemorrhoids noted. Complex tubular adenomas were excised at 60 cm, 45 cm, and 40 cm. Performing Provider:: Leland Alvarez MD Referring Provider:: . Sedation:: Monitored anesthesia care Procedure:: After informed consent was obtained the patient was taken to the endoscopy suite. Sedation ensued after the patient was transferred to the left lateral decubitus position. Pulse, blood pressure, and oxygen saturation were monitored throughout the procedure. Digital rectal exam revealed no significant abnormality. The colonoscope was placed in position. The entire colon was evaluated. The colonoscope was carefully removed and the patient was transferred to recovery in stable condition. Please see findings and specimens below for detail. Findings:: Bowel preparation fair Unchanged mild hemorrhoidal cushions/tags Unchanged scattered diverticulosis Significant sigmoid tortuosity Small right colon polyp Specimens:: Right colon polyp (cold biopsy forceps) Recommendations:: Timing of repeat colonoscopy is pending pathology will likely be between 3-5 years. Complications:: No immediate Estimated blood obtained (mL): 1 Colonoscopy Component Colonoscopy Component Was a colonoscopy performed during today's procedure?: Yes Recommended follow up colonoscopy of at least 10 years?: No If no, follow up colonoscopy recommended in ___ years?: (See above) Reason for not recommending >/= 10 yr follow-up interval?: (See above)
[2025-05-12 07:45] VITALS: BP 136/83; PULSE 91; RESP 16; TEMP 36.2; O2SAT 99
[2025-05-12 07:55] VITALS: BP 129/70; PULSE 76; RESP 16; O2SAT 100
[2025-05-12 08:05] VITALS: BP 134/77; PULSE 73; RESP 16; O2SAT 100
[2025-05-12 08:15] VITALS: BP 121/79; PULSE 77; RESP 16; TEMP 36.2; O2SAT 98
== END 2025-05-12 08:27 | disposition home or self-care (01) ==
PROVIDERS: PCP Family Medicine; Visit Provider Surgery
PROC: 0DJD8ZZ Inspection of Lower Intestinal Tract, Via Natural or Artificial Opening Endoscopic (ICD-10-PCS; principal; 2025-05-12 07:30)
DX: D12.2 Benign neoplasm of ascending colon (principal); E89.0 Postprocedural hypothyroidism; Z87.891 Personal history of nicotine dependence; Z79.890 Hormone replacement therapy; Z79.899 Other long term (current) drug therapy; Z86.0100 Personal history of colon polyps, unspecified
CPT/HCPCS: 45380; J2003; J2704; J7120

== ENCOUNTER 2025-09-10 12:05 | Outpatient (CLI) | payer MEDICARE, BC, SELFPAY ==
--- OUTSIDE RECORDS SUMMARY | 2025-09-10 12:32 | XMS_ITS | Patient Health Record ---
Author Organization [facility] Address [address] [place] [address] Care Team Providers Care Table Inspector Name Role Phone Merari Mills Unavailable [phone] Allergies Allergen (clinical drug ingredient) Drug/Non Drug Allergy documented on EMR Reaction Allergy Type Onset Date Status CODEINE PHOSPHATE (CODEINE PHOSPHATE SOLN) Unspecified Drug Allergy 05/28/2018 Active tetracycline TETRACYCLINE HCL Unspecified Drug Allergy 05/28 Active Reason For Referral No Information Problems Problem Type SNOMED Code ICD Code Onset Dates Problem Status W/U Status Risk Notes Problem Gynecological examination normal ([id number] ) Cervical smear, as part of routine gynecological examination (Z01.419) 05/28/20 18 Active confirmed Annual without abnormal findings Plan [...] tubal and tubal , 1998 neck surgery, 2003, kidney stone removal, 2015 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
--- OUTSIDE RECORDS SUMMARY | 2025-09-10 12:32 | XMS_ITS | Encounter Summary ---
Author Organization [facility] Address [address] [place] [address] Care Team Providers Care Shoe Shiner Name Role Phone Jeet Lundberg MD Primary Care Provider [phone] Reason for Referral * Consultation (Routine) - Closed Specialty Diagnoses / Procedures Referred By Kenyetta castanon Referred To Contact Orthopaedic Surgery Diagnoses Chronic right-sided low back pain with right-sided sciatica Trochanteric bursitis of right hip Jeet Lundberg MD [address] [place] [address] Phone: tel: fax: Referral ID Status Reason Start Date Expiration Date V isits Requested Visits Authorized [id number] Closed Specialty Services Required 02/02/2025 08/04/2026 1 1 Encounter Details Date Type Department Care Team (Late st Contact Info) Description 02/02/2025 Community Orders Community Practice [address] [place] [address] Jeet Lundberg MD [address] [place] [phone] Chronic right-sided low back pain with right-sided [...] hip documented in this encounter Care Teams Shoe Shiner Relationship Specialty Start Date End Date Jeet Lundberg MD [address] [place] [address] PCP - General 02/05/25 documented as of this encounter
--- OUTSIDE RECORDS SUMMARY | 2025-09-10 12:32 | XMS_ITS | Clinical Summary ---
Author Organization [facility] Address [address] [place] [address] Care Team Providers Care Pigment Making Supervisor Name Role Phone Jeet Lundberg MD Primary Care Provider [phone] Allergies Active Allergy Reactions Criticality Noted Date [...] Date Trochanteric bursitis of both hips 02/06/2025 Social History Tobacco Use Types Packs/Day Years [...] (2 - Td or Tdap) 08/12/2023 08/12/2013 [id number] Vaccine ( season) 2025 03/31/2022, 11/08/2021, 08/17/2021, Additional history exists [facility]-Influenza Vaccine (#1) 05/25/202508/15, 07/14/2022, 06/24/2022, Additional history exists [facility]Y-RSV Vaccine: 60+ Years or (1 - 1-dose 75+ series) 2038 [facility]Y-Hepatitis A Vaccines Aged Out 08/05/2018 No longer eligible based on patient's age to complete this topic [facility]Y-Hepatitis C Screening Completed 11/08/2022 UKY-Obesity Intervention Completed 02/06/2025 HPV Vaccines (No Doses Required) Completed UKY-HIB Vaccines Aged Out No longer e ligible based on patient's age to complete this topic UKY-IPV Vaccines Aged Out No longer e ligible based on patient's age to complete this topic UKY-Rotavirus Vaccines Aged Out No lo nger eligible based on patient's age to complete this topic Insurance MEDICARE [facility] Care Teams Pigment Making Supervisor Relationship Specialty Start Date End Date Jeet Lundberg MD [address] [place] [address] PCP - General 02/05/25
--- OUTSIDE RECORDS SUMMARY | 2025-09-10 12:32 | XMS_ITS | Clinical Summary ---
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 Overview (06/28/2020): SCREENING TESTS Year [...] 12/19/2022 12:13 PM EDT Plan of Treatment Upcoming Encounters Date Type Department Care Team (Late st Contact Info) Description 09/28/2025 3:15 PM EST Office Visit [facility] [address] [place], [place] [phone] Neil Ramey MD [address], [place] [id number] Health Maintenance Due Date Last Done Comments [...] 08/12/2023 013 ANNUAL WELLNESS VISIT 11/08/2023 11/08/2022 INFLUENZA VACCINE 04/24/2025 07/14/2022, , 08/01/2021, Additional history exists MAMMOGRAM 07/17/2025 09/03/2023, 06/25, 05/08/2022, Additional history exists HEPATITIS C SCREENING Completed [...] 12:4 6 PM EST 11/08/2022 Narrative [facility] (AMBULATORY) - 11/09/2022 8:14 AM EST Performed at: 01 - [facility] [id number] Cash Applications Coordinator: David Robins PhD, Phone: [phone] Patient Fasting: Y Sona Giraldo APRN LAB BLOOD ORDERABLES Final R esult [facility] (AMBULATORY) [address] [place] [address], [facility] [address] [place] [address], from Last 3 Months or Most Recently Relevant to Health Maintenance Insurance MEDICARE A & B Care Teams Parachute Taper Relationship Specialty Start Date End Date Sona Giraldo APRN PCP - General Family Medicine 11/08/22
[2025-09-10 12:48] VITALS: BMI 29.9
[2025-09-10 12:54] VITALS: BP 151/95; PULSE 80; RESP 18; O2SAT 98
--- NOTE | 2025-09-10 13:00 | CT_ITS ---
APPROVED REPORT [employer]: CLINICAL INDICATION Chest Pain TECHNIQUE Image Acquisition: A 128 slice MDCT scanner ([employer]) was used for data acquisition. A noncontrast coronary calcium scan was performed. A CT attenuation threshold of 130 Hounsfield units (HU) was used for the detection of calcium in contiguous voxels of 1 sq mm in area to be counted as individual lesions. Bolus tracking in the ascending aorta with a threshold of 180 HU was performed. Immediately afterwards, ECG synchronized cardiac CT was then performed from the cardiac base to apex using retrospective gating with ECG tube current modulation. A total of 85 mL of Isovue 370 mg/mL contrast medium was administered at 5 mL/sec followed by a saline flush using a biphasic injection protocol. A tube voltage of 120 KVp was used. Image Reconstruction Transaxial images were reconstructed at 0.67 mm slide thickness. Data was reviewed interactively on an advanced workstation capable of 2 and 3-dimensional displays in all conventional reconstruction formats, including multiplanar reformations, maximum intensity projections, curved multiplanar reformations, and volume rendered reconstructions. When applicable, selected routine images describing the relevant coronary anatomy and pathology were saved and sent to PACS. Complications None Technical Quality Overall image quality was good. Coronary artery opacification was adequate. Total DLP (Dose-Length Product) is 1149.9 mGy-cm. The reported value represents the total of one or more individual components during the CT acquisition of this date and at this time, and as such, the same value may appear in more than one CT report depending on the interpreting/reporting physicians. COMPARISON None FINDINGS CT Coronary Calcium Scoring LMA (Left Main Artery) = 0 LAD (Left Anterior Descending) = 0 LCX (Left Coronary Circumflex) = 0 RCA (Right Coronary Artery) = 0 Total Calcium Score = 0 using the AJ-130 method. The interpretation of the calcium heart score is based on the following continuum*: 0 = no calcified plaque detected (risk of coronary artery disease is very low ??? less than 5%) 1-10 = calcium detected in extremely minimal levels (risk of coronary diseases is still low ??? less than 10%) 11-100 = mild levels of plaque detected with certainty (mild or minimal narrowing of heart arteries is likely) 101-400 = definite,at least moderate levels of plaque detected (relatively high risk of a heart attack within 3-5 years) >401-999 = extensive levels of plaque detected (high risk of heart attack, high levels of vascular disease are present, high likelihood of at least one significant coronary narrowing) *The calcium heart score quantifies the burden of coronary calcification/plaque in the coronary arteries. The calcium heart score is not able to evaluate the presence or burden of non-calcified (i.e. soft) plaque. There is no identifiable calcification in the aortic valve, mitral annulus or mitral valve, pericardium, or myocardium. Coronary CT Angiography The coronary arterial system is right dominant. Quantitative Stenosis Grading: Left Main (LM): The left main originates normally from the left sinus of Valsalva. The LM bifurcates into the left anterior descending artery and left circumflex artery. The LM is patent with no evidence of atherosclerosis. Left Anterior Descending (LAD) and Diagonal Branches: The LAD gives off 3 diagonal branch(es). The LAD and its branches are patent with no evidence of atherosclerosis. There is no evidence of LAD-myocardial bridge. Left Circumflex (LCX) and Obtuse Marginals (OM): The LCX gives off 1 Obtuse Marginal (OM) branch(es). The LCX and its branches are patent with no evidence of atherosclerosis. Right Coronary Artery (RCA): The RCA originates normally from the right sinus of Valsalva. The RCA gives off a posterior descending artery (PDA) and posterolateral (PL) branches. The RCA and its branches are patent with no evidence of atherosclerosis. Non-Coronary Cardiac Findings: Analysis of the left ventricular (LV) structure and function was performed after 3-D reconstruction of the LV from axial images, with user-corrected automatic contouring for assessment of LV volumes and user-defined reconstruction from oblique planes for measurement of 3-D cardiac structure and function. -The left ventricle systolic function is normal. -There is no left atrial appendage filling defect. Two right pulmonary veins and two left pulmonary veins drain normally into the left atrium. -No pericardial thickening or calcification. -Central and branch pulmonary arteries in the [id number] are unremarkable. -Thoracic aorta within the visualized thoracic aortic-branches in the [id number] is unremarkable. Extracardiac Structures No significant extra-cardiac findings. Note, however, that this study is focused on the cardiac findings. IMPRESSION -Absence of coronary calcification with an Agatston score = 0 using the AJ-130 method. -No evidence of significant flow-limiting atherosclerosis of the coronary arteries. -No evidence of coronary anomalies or myocardial bridging. -CAD-RADS 0. Management recommendations per ACC/AHA guidelines*, as clinically appropriate. *Recommendations: CAD RADS 0: Reassurance. Consider non-atherosclerotic causes of chest pain. CAD RADS 1: Consider non-atherosclerotic causes of chest pain. Consider preventive therapy and risk factor modification. CAD RADS 2: Consider non-atherosclerotic causes of chest pain. Consider preventive therapy and risk factor modification, particularly for patients with nonobstructive plaque in multiple segments. CAD RADS 3: Consider further functional testing. Consider symptom-guided anti-ischemic and preventive pharmacotherapy as well as risk factor modification per published guideline statements. CAD RADS 4A: Consider further functional testing or invasive coronary angiography with revascularization per published guideline statements. Consider symptom-guided anti-ischemic and preventive pharmacotherapy as well as risk factor modification per published guideline statements. CAD RADS 4B: Invasive coronary angiography recommended with revascularization per published guideline statements. Consider symptom-guided anti-ischemic and preventive pharmacotherapy as well as risk factor modification per published guideline statements. CAD RADS 5: Consider invasive angiography and/or viability assessment with revascularization per published guideline statements. Consider symptom-guided anti-ischemic and preventive pharmacotherapy as well as risk factor modification per published guideline statements. CRITICAL RESULT None COMMUNICATION Per this written report The coronary and cardiac findings of this CCTA were reviewed, reported, and signed by Jon Stephens MD (Laundry [employer]er). Conclusion Electronically signed by : Dorothy Stephens MD 09/18/2025 08:39:07
[2025-09-10 13:15] LABS: Chloride 105 mmol/L (98-107); Potassium 4.1 mmoL/L (3.5-5.1); Sodium 134 mmol/L (136-145)
[2025-09-10 13:18] LABS: Anion Gap 6.1 mEq/L (5-15); Blood Urea Nitrogen 10 mg/dl (7-17); Carbon Dioxide 27 mmol/L (22.0-30.0); Creatinine Clearance Estimated 75 mL/min (50-200); Creatinine,Serum 0.60 mg/dl (0.52-1.04); Estimated Glomerular Filt Rate 101 ml/min (>60); GFR (African American) 123 ML/MIN (>60)
[2025-09-10 13:19] LABS: Calcium 9.2 mg/dl (8.4-10.2); Glucose 84 mg/dl (74-100)
[2025-09-10] MEDS: IVABRADINE HCL 7.5MG TABLET PO (13:31)
[2025-09-10] MEDS: METOPROLOL TARTRATE 50MG TABLET PO ×2 (13:32→14:42)
--- NOTE | 2025-09-10 13:45 | CA_ITS ---
APPROVED REPORT EXAM: Comprehensive 2D, Doppler, and color-flow Echocardiogram Director Drug: Clarita Patterson RVT Ht: 5 ft 4 in Wt: 179lbs BSA: 1.87 BP: 151/70 mmHg Indications: DYSPNEA, PALPITATIONS M-Mode Dimensions RVDd 2.32 cm (0.9-2.6) LA Diam 3.07 cm (1.9-4.0) LVDd 4.56 cm (3.5-5.7) LVDs 3.00 cm (3.5-5.7) IVSd 1.03 cm (0.6-1.1) PWd 0.61 cm (0.6-1.1) EF (Teich) 63.30% FS 34.20% EDV (Teich) 95.40 mL ESV (Teich) 35.00 mL LV Diastology E Decel Time 260 (160-240 msec) E/A Ratio 1.0 Aortic Valve DONIS Index 1.96 cm2/m2 AoV Peak Yaakov. 107.0 (50-130 cm/s) AO Peak GR. 4.60 mmHg AO Mean GR. 2.50 (<5 mmHg) AO VTI 18.6 (18-25 cm) DONIS (VTI) 3.74 (2.5-4.5 cm2) Mitral Valve MV E Max Yaakov. 77.0 (40-130 cm/s) MV A Velocity 76.0 (40-130 cm/s) E/A Ratio 1.02 MV PHT 76.0 ms Pulmonary Valve PV Peak Velocity 80.0 (50-150 cm/s) Left Ventricle The left ventricle is normal size. Left ventricular systolic function is normal. The left ventricular ejection fraction is within the normal range. There is normal left ventricular wall thickness. There is normal LV segmental wall motion. The left ventricular diastolic function is normal. LVEF is 55% Right Ventricle The right ventricle is normal size. The right ventricular systolic function is normal. Atria The left atrium size is normal. The right atrium size is normal. There is no color Doppler evidence of interatrial shunt. Aortic Valve The aortic valve opens well. There is no hemodynamically significant aortic valvular stenosis. No aortic regurgitation is present. Mitral Valve The mitral valve is normal in structure. No evidence of mitral valve stenosis. Trace mitral regurgitation is present. Tricuspid Valve The tricuspid valve leaflets are thin and pliable. Trace tricuspid regurgitation. There is insufficient TR jet to estimate RVSP. Pulmonic Valve The pulmonary valve is grossly normal in structure. Trace pulmonic valve regurgitation is present. Great Vessels The aortic root is normal in size. IVC is normal in size and collapses >50% with inspiration. Pericardium There is no pericardial effusion. Other Information Study Quality: Fair Conclusion Normal biventricular systolic function. No significant valvular stenosis or regurgitation. Electronically signed by : Dorothy Stephens MD 09/20/2025 14:17:03
[2025-09-10] MEDS: SODIUM CHLORIDE 0.9% 10ML SYR (RAD ONLY) 10 ML IV (15:36)
[2025-09-10] MEDS: IOPAMIDOL-370 (76%);100ML BOTTLE 85 ML IV (15:36)
[2025-09-10] MEDS: 0.9 % SODIUM CHLORIDE 50 ML VIAL IV (15:36)
--- NOTE | 2025-09-10 15:50 | PC.NURSE ---
Patients vitals during CTA procedure today. Pre-scan (1530) - BP 132/76, HR 72, O2 98% RA Start (1532) - BP 128/73, HR 71, O2 99% RA Stop (1538) - BP 109/66, HR 68, O2 94% RA Discharge (1550) - BP 124/67, HR 64, O2 97% RA Patient taken to echo lab with tech. Clarita
== END 2025-09-10 15:50 | disposition still patient (30) ==
PROVIDERS: PCP Family Medicine; Visit Provider Physician Assistant
DX: R07.9 Chest pain, unspecified (principal); R06.00 Dyspnea, unspecified; R00.2 Palpitations
CPT/HCPCS: 75574; 80048; 93306; Q9967